=== PATIENT | female | born 1950 | race Caucasian/White ===

== ENCOUNTER → 2022-03-01 | Outpatient (CLI) | payer MEDICARE, BC, SELFPAY ==
[2022-03-01 15:30] LABS: International Normalized Ratio 1.2; Prothrombin Time (Protime)PT. 14.7 SECONDS (11.7-14.9)
[2022-03-01 15:31] LABS: Partial Thromboplast Time 35.6 Seconds (24.1-36.2)
[2022-03-01 16:09] LABS: Ferritin 395 ng/mL (8-252)
[2022-03-02 08:54] LABS: Hepatitis C Antibody Non-Reactive (Nonreactive)
[2022-03-03 14:50] LABS: AFP, Tumor Marker 2.2 ng/mL (0.0-9.2); Anti-Smooth Muscle ABS 8 Units (0-19); Ceruloplasmin 23.8 mg/dL (19.0-39.0)
[2022-03-03 14:51] LABS: ANTINUCLEAR ANTIBODIES DIRECT Positive (Negative); Anti-Mitochondrial AB <20.0 Units (0.0-20.0)
== END | disposition home or self-care (01) ==
PROVIDERS: PCP Nurse Practitioner Primary Care; Referring Provider Internal Medicine Gastroenterology; Visit Provider Internal Medicine Gastroenterology
DX: K75.9 Inflammatory liver disease, unspecified (principal); K74.60 Unspecified cirrhosis of liver
CPT/HCPCS: 36415; 82105; 82390; 82728; 83516; 85610; 85730; 86038; 86803

== ENCOUNTER → 2023-08-21 | Outpatient (CLI) | payer MEDICARE, BC, SELFPAY ==
--- OUTSIDE RECORDS SUMMARY | 2023-08-21 09:50 | XMS RPT_ITS | CCD ---
Author Name Unknown Address [id number] [place] [address] Organization [facility] Care Team Providers Care On Site Services Specialist Name Role Phone MICHEL TENTER-ALIGNER, HASEEB S Primary Care Physicia n Joseluis PT, Jade Unavailable Unavailable CLARKE WYNN Attending Unavailable MICHEL TENTER-ALIGNER, HASEEB S Primary Care Unava ilable TERRY LOPEZ MD Attending Unavailable MICHEL TENTER-ALIGNER, HASEEB S Attending Unava ilable MICHEL TENTER-ALIGNER, HASEEB S Primary Care Unava ilable GARETT NICOLE PA-C Attending Unavailable MICHEL TENTER-ALIGNER, HASEEB S Primary Care Unava ilable MICHEL TENTER-ALIGNER, HASEEB S Primary Care Unava ilable TERRY LOPEZ MD Attending Unavailable MICHEL TENTER-ALIGNER, HASEEB S Primary Care Unava ilable TERRY LOPEZ MD Attending Unavailable MICHEL TENTER-ALIGNER, HASEEB S Primary Care Unava ilable DIANA HAYES, BENY Attending Unavaila ble KAPPER TENTER-ALIGNER, JADE Li Attending Unavaila ble FOITH TENTER-ALIGNER, JORDAN Admitting Unavailab le MICHEL TENTER-ALIGNER, HASEEB S Primary Care Unava ilable FISH TENTER-ALIGNERIFRAH Consulting Unavailab ELIZABETH Portillo MD Referring Unavailable MICHEL TENTER-ALIGNER, HASEEB S Attending Unava ilable MICHEL TENTER-ALIGNER, HASEEB S Primary Care Unava ilable MICHEL TENTER-ALIGNER, HASEEB S Primary Care Unava ilable FISH TENTER-ALIGNER, IFRAH Attending Unavailab le MICHEL TENTER-ALIGNER, HASEEB S Primary Care Unava ilable DIANA HAYES, BENY Attending Unavaila yanique VAZQUEZ MD, DR SETH Attending Unavailable MICHEL TENTER-ALIGNER, HASEEB S Primary Care Unava ilable TAYLOR HAYES, DR SETH Attending Unavailable MICHEL TENTER-ALIGNER, HASEEB S Primary Care Unava ilable MICHEL TENTER-ALIGNER, HASEEB S Primary Care Unava ilable TAYLOR HAYES, DR SETH Attending Unavailable MICHEL TENTER-ALIGNER, HASEEB S Primary Care Unava ilable MICHEL TENTER-ALIGNER, HASEEB S Attending Unava ilable CONCHITA BAHENA Attending Unavailable MICHEL TENTER-ALIGNER, HASEEB S Primary Care Unava ilable MD CORA MÁRQUEZ Attending Unavailable MICHEL TENTER-ALIGNER, HASEEB S Primary Care Unava ilable CRUZ TENTER-ALIGNER, MARGRET Sol Attending Skyla vailable MICHEL TENTER-ALIGNER, HASEEB S Primary Care Unava ilable MICHEL TENTER-ALIGNER, HASEEB S Primary Care Unava ilable JOHN HAYES, TERRY Salgado Attending Unavailable TAYLOR HAYES, DR SETH Attending Unavailable MICHEL TENTER-ALIGNER, HASEEB S Primary Care Unava ilable FOITH TENTER-ALIGNER, JORDAN Consulting Unavailab le MICHEL TENTER-ALIGNER, HASEEB S Primary Care Unava ilable ALBIN BARRETT MD Attending Unavailable MICHEL TENTER-ALIGNER, HASEEB S Primary Care Unava ilable SHAY CALDERON DO Attending UnavailCHARO Kurtz MD Consulting Unavailable MICHEL TENTER-ALIGNER, HASEEB S Primary Care Unava ilable SHAY CALDERON DO Attending Unavailabl e MICHEL TENTER-ALIGNER, HASEEB S Primary Care Unava ilable TERRY LOPEZ MD Attending Unavailable MICHEL TENTER-ALIGNER, HASEEB S Primary Care Unava ilable KASIA BENEDICT DO Attending Unavailable Allergies Allergy Classification Reported Allergen(s) Allergy Type Date of Onset Reaction(s) Facility (5 sources) Captopril; Translations: [captopril] Drug Allergy TACHYCARDIA [facility] Work Phone: (20 sources) Clarithromycin; Translations: [clarithromycin] Drug Allergy Eruption of skin (disorder) [facility] Work Phone: Medications Current Medications Medication Drug Class(es) Dates Sig (Normalized) Sig (Original) acetaminophen 325 mg / HYDROcodone bitartrate 10 mg oral tablet (9 sources) Opioid Agonist Start: 09-28-2021 End: 10-28-2021 acetaminophen-hydr ocodone 325 mg-10 mg oral tablet Dose = 1 tab(s), Oral, q6hr, fill date 09-28-21, # 120 tab(s), 0 Refill(s), Pharmacy: [facility], Lumbar stenosis, 09/28/21, 157.5, cm, 09/06/21 13:58:00 EST, Height, 55.2, kg, 09/06/21 13:58:00 EST, Dosing Weight Start Date: 09/28/21 Stop Date: 10/28/21 Status: Ordered Completed/Discontinued Medications Medication Drug Class(es) Dates Sig (Normalized) Sig (Original) acetaminophen 325 mg / oxyCODONE hydrochloride 7.5 mg oral tablet (10 sources) Opioid Agonist Start: 01-30-2022 End: 03-01-2022 take 1 tablet by mouth every six hours acetaminophen-oxy codone 325 mg-7.5 mg oral tablet Dose = 1 tab(s), Oral, q6hr, fill date 01/30/2022, # 120 tab(s), 0 Refill(s), Pharmacy: [facility], Lumbar post-laminectomy syndrome, 01/30/22, 157.5, cm, 12/28/21 13:21:00 EDT, Height, 54.1 Start Date: 01/30/22 Stop Date: 03/01/22 Status: Ordered Problems Problem Classification Problem Date Documented Date Episodic/Chronic Adjustment disorders (5 sources) Grief finding 11-29-2022 Chronic Administrative/social admission (4 sources) 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 07-18-2023 Episodic Anxiety disorders (18 sources) Anxiety disorder, unspecified; Translations: [Anxiety] Onset: 12-05-2022 Chronic Cardiac dysrhythmias (20 sources) Palpitations 12-11-2019 Episodic Chronic kidney disease (11 sources) Chronic kidney disease stage 3B 12-27-2022 Chronic Deficiency and other anemia (20 sources) Anemia; Translations: [Anemia, unspecified] Onset: 01-18-2023 07-05-2020 Episodic Deficiency and other anemia (16 sources) Iron deficiency anemia 2022 Episodic Disorders of lipid metabolism (15 sources) Hyperlipidemia 08-01-2022 Chronic Essential hypertension (4 sources) Benign essential hypertension 07-18-2023 Chronic Fluid and electrolyte disorders (1 source) Dehydration; Translations: [Dehydration] Onset: 03-19-2022 Episodic Mood disorders (20 sources) Depressive disorder; Translations: [Severe recurrent major depression] 06-12-2019 Chronic Mood disorders (2 sources) Mood disorders; Translations: [Depression, unspecified] Onset: 12-05-2022 Neoplasms of unspecified nature or uncertain behavior (20 sources) Monoclonal gammopathy (clinical); Translations: [Monoclonal gammopathy] Onset: 01-18-2023 07-25-2021 Chronic Nonspecific chest pain (16 sources) Chest pain; Translations: [Chest pain, unspecified] Onset: 03-23-2022 Episodic Osteoporosis (20 sources) Osteoporosis 06-29-2021 Chronic Other connective tissue disease (20 sources) Fibromyalgia 06-12-2019 Episodic Other inflammatory condition of skin (1 source) Subacute cutaneous lupus erythematosus; Translations: [Subacute cutaneous lupus erythematosus] Chronic Other inflammatory condition of skin (8 sources) Erythema multiforme 01-31-2023 Episodic Other liver diseases (7 sources) Cirrhosis of liver 03-07-2022 Chronic Other liver diseases (15 sources) 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 Other lower respiratory disease (6 sources) Multiple nodules of lung 06-05-2023 Episodic Other nervous system disorders (8 sources) Chronic postoperative pain 02-26-2023 Chronic Other non-epithelial cancer of skin (4 sources) Basal cell carcinoma of face 07-18-2023 Episodic Other skin disorders (1 source) Actinic keratosis; Translations: [Actinic keratosis] Episodic Other upper respiratory disease (11 sources) Allergic rhinitis 12-27-2022 Chronic Other upper respiratory disease (4 sources) Seasonal allergy 07-18-2023 Chronic Other upper respiratory disease (4 sources) Nasal congestion 07-18-2023 Episodic Other upper respiratory disease (4 sources) Nasal discharge 07-18-2023 Episodic Poisoning by other medications and drugs (16 sources) Iron adverse reaction 2022 Episodic Residual codes; unclassified (20 sources) Insomnia 06-29-2021 Episodic Skin and subcutaneous tissue infections (20 sources) Cellulitis 06-01-2021 Episodic Spondylosis; intervertebral disc disorders; other back problems (20 sources) Lumbar post-laminectomy syndrome; Translations: [Degeneration of intervertebral disc] Onset: 07-23-2023 03-10-2021 Chronic Spondylosis; intervertebral disc disorders; other back problems (20 sources) Low back pain; Translations: [Spinal stenosis of lumbar region] Onset: 11-25-2015 11-25-2015 Episodic Suicide and intentional self-inflicted injury (2 sources) Suicidal ideations; Translations: [Suicidal ideations] Onset: 12-05-2022 Episodic Systemic lupus erythematosus and connective tissue disorders (7 sources) Systemic lupus erythematosus 03-26-2023 Chronic Thyroid disorders (20 sources) Hypothyroidism 06-12-2019 Chronic Unclassified (20 sources) CLAUSTROPHOBIC - NO MASKS( Confirmed ) Onset: 08-20-1999 06-10-2007 Unclassified (20 sources) l4,l5 discectomy( Confirmed ) Onset: 06-11-2007 06-20-2007 Unclassified (20 sources) lumbar cerebral spinal leak( Confirmed ) Onset: 06-20-2007 06-20-2007 Unclassified (20 sources) Patient encounter status 06-01-2021 Unclassified (13 sources) CLAUSTROPHOBIC - NO MASKS Onset: 08-20-1999 06-10-2007 Unclassified (13 sources) l4,l5 discectomy Onset: 06-11-2007 06-20-2007 Unclassified (13 sources) lumbar cerebral spinal leak Onset: 06-20-2007 06-20-2007 Unclassified (8 sources) Prescribed medication regimen behavior finding 02-26-2023 Viral infection (1 source) Disease caused by 2019-nCoV 06-06-2022 Results Test Name Value Interpretation Reference Range Facil ity Vital Signs Date Time Vital Sign Value Performing Clinician Faci lity 07-23-2023 20:30-0500 Body temperature 97.16 [degF] SHAY CALDERON [employer] [facility] 07-23-2023 20:30-0500 Diastolic Blood Pressure Non-Invasive 82 mm[Hg] SHAY CALDERON [employer] [facility] 07-23-2023 20:30-0500 Heart rate 63 /min SHAY CALDERON DO [facility] 07-23-2023 20:30-0500 Respiratory rate 16 /min SHAY CALDERON DO [facility] 07-23-2023 20:30-0500 Systolic Blood Pressure Non-Invasive 178 mm[Hg] SHAY CALDERON DO [facility] 07-23-2023 19:30-0500 Body temperature 97.7 [degF] SHAY CALDERON DO [facility] 07-23-2023 19:30-0500 Diastolic Blood Pressure Non-Invasive 67 mm[Hg] SHAY CALDERON DO [facility] 07-23-2023 19:30-0500 Heart rate 62 /min SHAY BAUERRAN DO [facility] 07-23-2023 19:30-0500 Respiratory rate 18 /min SHAY BAUERRAN DO [facility] 07-23-2023 19:30-0500 Systolic Blood Pressure Non-Invasive 149 mm[Hg] SHAY BAUERRAN DO [facility] 07-23-2023 19:18-0500 Heart rate 62 /min SHAY BAUERRAN DO [facility] 07-23-2023 19:08-0500 Body temperature 96.8 [degF] SHAY BAUERRAN DO [facility] 07-23-2023 19:08-0500 Diastolic Blood Pressure Non-Invasive 56 mm[Hg] SHAY CALDERON DO [facility] 07-23-2023 19:08-0500 Heart rate 63 /min SHAY CALDERON DO [facility] 07-23-2023 19:08-0500 Mean blood pressure 84 mm[Hg] SHAY CALDERON DO [facility] 07-23-2023 19:08-0500 Systolic Blood Pressure Non-Invasive 156 mm[Hg] SHAY BAUERRAN DO [facility] 07-23-2023 18:35-0500 Respiratory rate 16 /min SHAY CALDERON DO [facility] 07-23-2023 18:30-0500 Mean blood pressure 98 mm[Hg] SHAY BAUERRAN DO [facility] 07-23-2023 18:12-0500 Mean blood pressure 95 mm[Hg] SHAY BAUERRAN DO [facility] 07-23-2023 17:30-0500 Respiratory Rate - Anes 3 br/min SHAY BAUERRAN DO [facility] 07-23-2023 17:25-0500 Body temperature 97.9 [degF] SHAY BAUERRAN DO [facility] 07-23-2023 17:25-0500 Respiratory Rate - Anes 12 br/min SHAY BAUERRAN DO [facility] 07-23-2023 17:20-0500 Body temperature 97.83 [degF] SHAY BAUERRAN DO [facility] 07-23-2023 17:20-0500 Respiratory Rate - Anes 11 br/min SHAY BAUERRAN DO [facility] 07-23-2023 17:15-0500 Body temperature 97.81 [degF] SHAY BAUERRAN DO [facility] 07-23-2023 11:15-0500 Body height 157.5 cm SHAY BAUERRAN DO [facility] 07-23-2023 11:15-0500 Body weight 51.6 kg SHAY BAUERRAN DO [facility] 07-23-2023 11:15-0500 Heart rate 63 /min SHAY CALDERON DO [facility] 07-18-2023 14:45-0500 Diastolic Blood Pressure Non-Invasive 69 mm[Hg] SHAY BAUERRAN DO [facility] 07-18-2023 14:45-0500 Systolic Blood Pressure Non-Invasive 132 mm[Hg] SHAY BAUERRAN DO [facility] 07-18-2023 14:06-0500 Blood Pressure Cuff Size SHAY BAUERRAN DO [facility] 07-18-2023 14:06-0500 Blood Pressure Location SHAY CALDERON DO [facility] 07-18-2023 14:06-0500 Blood Pressure Method SHAY CALDERON DO [facility] 07-18-2023 14:06-0500 Body height 157.5 cm SHAY BAUERRAN DO [facility] 07-18-2023 14:06-0500 Body temperature 98.78 [degF] SHAY BAUERRAN DO [facility] 07-18-2023 14:06-0500 Body weight 21.85 kg/m2 SHAY BAUERRAN DO [facility] 07-18-2023 14:06-0500 Body weight 54.2 kg SHAY BAUERRAN DO [facility] 07-18-2023 14:06-0500 Diastolic Blood Pressure Non-Invasive 72 mm[Hg] SHAY BAUERRAN DO [facility] 07-18-2023 14:06-0500 Heart rate 68 /min SHAY BAUERRAN DO [facility] 07-18-2023 14:06-0500 Systolic Blood Pressure Non-Invasive 177 mm[Hg] SHAY BAUERRAN DO [facility] 08-04-2022 18:44-0400 Diastolic blood pressure 72 mm[Hg] ROSENDO DURESKA DO [facility] 03-23-2022 18:44-0400 Heart rate 69 /min ROSENDO DURESKA DO [facility] 03-23-2022 18:44-0400 Reason For Taking VItal Signs ROSENDO DURESKA DO [facility] 03-23-2022 18:44-0400 Respiratory rate 16 /min ROSENDO DURESKA DO [facility] 03-23-2022 18:44-0400 Systolic blood pressure 174 mm[Hg] ROSENDO DURESKA DO [facility] 03-23-2022 18:26-0400 Diastolic blood pressure 60 mm[Hg] ROSENDO DURESKA DO [facility] 03-23-2022 18:26-0400 Heart rate 66 /min ROSENDO DURESKA DO [facility] 03-23-2022 18:26-0400 Reason For Taking VItal Signs ROSENDO DURESKA DO [facility] 03-23-2022 18:26-0400 Respiratory rate 16 /min ROSENDO DURESKA DO [facility] 03-23-2022 18:26-0400 Systolic blood pressure 180 mm[Hg] ROSENDO DURESKA DO [facility] 03-23-2022 15:29-0400 Body temperature 97.7 [degF] ROSENDO DURESKA DO [facility] 03-23-2022 15:29-0400 Diastolic blood pressure 68 mm[Hg] ROSENDO DURESKA DO [facility] 03-23-2022 15:29-0400 Heart rate 75 /min ROSENDO DURESKA DO [facility] 03-23-2022 15:29-0400 Respiratory rate 20 /min ROSENDO DURESKA DO [facility] 03-23-2022 15:29-0400 Systolic blood pressure 155 mm[Hg] ROSENDO DURESKA DO [facility] 03-19-2022 17:50-0400 Body temperature 98.78 [degF] MINGO MENON MD [facility] 03-19-2022 17:50-0400 Diastolic blood pressure 69 mm[Hg] MINGO MENON MD [facility] 03-19-2022 17:50-0400 Heart rate 74 /min MINGO MENON MD [facility] 03-19-2022 17:50-0400 Respiratory rate 18 /min MINGO MENON MD [facility] 03-19-2022 17:50-0400 Systolic blood pressure 153 mm[Hg] MINGO MENON MD [facility] 03-19-2022 16:39-0400 Body height 157.5 cm MINGO MENON MD [facility] 03-19-2022 16:39-0400 Body temperature 101.3 [degF] MINGO MENON MD [facility] 03-19-2022 16:39-0400 Body weight 54.5 kg MINGO MENON MD [facility] 03-19-2022 16:39-0400 Diastolic blood pressure 84 mm[Hg] MINGO MENON MD [facility] 03-19-2022 16:39-0400 Heart rate 88 /min MINGO MENON MD [facility] 03-19-2022 16:39-0400 Respiratory rate 20 /min MINGO MENON MD [facility] 03-19-2022 16:39-0400 Systolic blood pressure 166 mm[Hg] MINGO MENON MD [facility] 10-26-2021 14:08-0500 Body height 157.[address] ROLO VAZQUEZ MD [facility] 10-26-2021 14:08-0500 Body weight 54.[address] ROLO VAZQUEZ MD [facility] 10-26-2021 14:08-0500 Body weight 21.97 kg/m2 DR ROLO VAZQUEZ MD [facility] 10-26-2021 14:08-0500 diastolic 63 mm[Hg] DR ROLO VAZQUEZ MD [facility] 10-26-2021 14:08-0500 Heart rate 69 /min DR ROLO VAZQUEZ MD [facility] 10-26-2021 14:08-0500 Reason For Taking VItal Signs DR ROLO VAZQUEZ MD [facility] 10-26-2021 14:08-0500 Respiratory rate 14 /min DR ROLO VAZQUEZ MD [facility] 10-26-2021 14:08-0500 systolic 160 mm[Hg] DR ROLO VAZQUEZ MD [facility] 10-26-2021 13:36-0500 Diastolic blood pressure 100 mm[Hg] DR ROLO VAZQUEZ MD [facility] 10-26-2021 13:36-0500 Heart rate 77 /min DR ROLO VAZQUEZ MD [facility] 10-26-2021 13:36-0500 Mean blood pressure 122 mm[Hg] DR ROLO VAZQUEZ MD [facility] 10-26-2021 13:36-0500 Reason For Taking VItal Signs DR ROLO VAZQUEZ MD [facility] 10-26-2021 13:36-0500 Respiratory rate 17 /min DR ROLO VAZQUEZ MD [facility] 10-26-2021 13:36-0500 Systolic blood pressure 166 mm[Hg] DR ROLO VAZQUEZ MD [facility] 10-26-2021 13:31-0500 Diastolic blood pressure 71 mm[Hg] DR ROLO VAZQUEZ MD [facility] 10-26-2021 13:31-0500 Heart rate 69 /min DR ROLO VAZQUEZ MD [facility] 10-26-2021 13:31-0500 Mean blood pressure 104 mm[Hg] DR ROLO VAZQUEZ MD [facility] 10-26-2021 13:31-0500 Respiratory rate 19 /min DR ROLO VAZQUEZ MD [facility] 10-26-2021 13:31-0500 Systolic blood pressure 169 mm[Hg] DR ROLO VAZQUEZ MD [facility] 10-26-2021 13:26-0500 Diastolic blood pressure 87 mm[Hg] DR ROLO VAZQUEZ MD [facility] 10-26-2021 13:26-0500 Heart rate 66 /min DR ROLO VAZQUEZ MD [facility] 10-26-2021 13:26-0500 Mean blood pressure 118 mm[Hg] DR ROLO VAZQUEZ MD [facility] 10-26-2021 13:26-0500 Systolic blood pressure 180 mm[Hg] DR ROLO VAZQUEZ MD [facility] 09-15-2021 12:32-0500 Diastolic blood pressure 60 mm[Hg] BENY ORTIZ MD [facility] 09-15-2021 12:32-0500 Heart rate 60 /min BENY ORTIZ MD [facility] 09-15-2021 12:32-0500 Mean blood pressure 87 mm[Hg] BENY ORTIZ MD [facility] 09-15-2021 12:32-0500 Respiratory rate 18 /min BENY ORTIZ MD [facility] 09-15-2021 12:32-0500 Systolic blood pressure 142 mm[Hg] BENY ORTIZ MD [facility] 09-15-2021 11:25-0500 Body temperature 98.24 [degF] BENY ORTIZ MD [facility] 09-15-2021 11:25-0500 Diastolic blood pressure 57 mm[Hg] BENY ORTIZ MD [facility] 09-15-2021 11:25-0500 Heart rate 65 /min BENY ORTIZ MD [facility] 09-15-2021 11:25-0500 Mean blood pressure 82 mm[Hg] BENY ORTIZ MD [facility] 09-15-2021 11:25-0500 Respiratory rate 18 /min BENY ORTIZ MD [facility] 09-15-2021 11:25-0500 Systolic blood pressure 133 mm[Hg] BENY ORTIZ MD [facility] 06-23-2021 09:35-0400 Diastolic Blood Pressure NBP [address] ROLO VAZQUEZ MD [facility] 06-23-2021 09:35-0400 Heart rate 81 /min DR ROLO VAZQUEZ MD [facility] 06-23-2021 09:35-0400 Respiratory rate 16 /min DR ROLO VAZQUEZ MD [facility] 06-23-2021 09:35-0400 Systolic Blood Pressure NBP [address] ROLO VAZQUEZ MD [facility] 06-23-2021 09:26-0400 Diastolic blood pressure 74 mm[Hg] DR ROLO VAZQUEZ MD [facility] 06-23-2021 09:26-0400 Heart rate 71 /min DR ROLO VAZQUEZ MD [facility] 06-23-2021 09:26-0400 Respiratory rate 15 /min DR ROLO VAZQUEZ MD [facility] 06-23-2021 09:26-0400 Systolic blood pressure 177 mm[Hg] DR ROLO VAZQUEZ MD [facility] 06-23-2021 09:18-0400 Diastolic Blood Pressure NBP [address] ROLO VAZQUEZ MD [facility] 06-23-2021 09:18-0400 Heart rate 80 /min DR ROLO VAZQUEZ MD [facility] 06-23-2021 09:18-0400 Respiratory rate 18 /min DR ROLO VAZQUEZ MD [facility] 06-23-2021 09:18-0400 Systolic Blood Pressure NBP [address] ROLO VAZQUEZ [address] [facility] 06-23-2021 09:12-0400 Diastolic Blood Pressure NBP [address]O VAZQUEZ [address] [facility] 06-23-2021 09:12-0400 Heart rate 88 /min DR ROLO VAZQUEZ MD [facility] 06-23-2021 09:12-0400 Systolic Blood Pressure NBP [address]OLO VAZQUEZ MD [facility] 06-23-2021 08:22-0400 Body height 157.[address] ROLO VAZQUEZ MD [facility] 06-23-2021 08:22-0400 Body weight 54.[address] ROLO VAZQUEZ MD [facility] 06-23-2021 08:22-0400 Body weight 22.09 kg/m2 DR ROLO VAZQUEZ MD [facility] 06-23-2021 08:22-0400 Heart rate 84 /min DR ROLO VAZQUEZ MD [facility] Encounters Encounter Date Encounter Type Care Provider Facility Start: 07-30-2023 End: 07-31-2023 ambulatory GARETT NICOLE PA-C Facility:B Start: 07-30-2023 End: 07-30-2023 Patient encounter procedure GARETT NICOLE PA-C [facility] Start: 07-30-2023 End: 07-30-2023 Patient encounter procedure TERRY LOPEZ MD [facility] Start: 07-23-2023 End: 07-23-2023 ambulatory CHARO FERNÁNDEZ MD Facility:A Start: 07-23-2023 End: 07-23-2023 SAME DAY STAY SHAY CALDERON DO [facility] Start: 07-18-2023 End: 07-19-2023 ambulatory HASEEB S MICHEL TENTER-ALIGNER Facility:A Start: 07-18-2023 End: 07-18-2023 Admission to establishment SHAY CALDERON DO [facility] Start: 06-21-2023 End: 06-22-2023 ambulatory HASEEB S MICHEL TENTER-ALIGNER Facility:B Start: 06-21-2023 End: 06-21-2023 Patient encounter procedure HASEEB Gracy MICHEL TENTER-ALIGNER [facility] Start: 06-18-2023 End: 06-19-2023 ambulatory HASEEB S MICHEL TENTER-ALIGNER Facility:B Start: 06-18-2023 End: 06-18-2023 Patient encounter procedure TERRY LOPEZ MD [facility] Start: 06-11-2023 End: 06-11-2023 ambulatory HASEEB S MICHEL TENTER-ALIGNER Facility:B Start: 05-28-2023 End: 05-29-2023 Emergency department patient visit HASEEB S MICHEL TENTER-ALIGNER Facility:B Start: 05-23-2023 End: 05-24-2023 ambulatory MARGRET Sol CRUZ TENTER-ALIGNER Facility:B Start: 05-23-2023 End: 05-23-2023 Patient encounter procedure MARGRET CRUZ TENTER-ALIGNER [facility] Start: 03-26-2023 End: 03-27-2023 ambulatory HASEEB S MICHEL TENTER-ALIGNER Facility:B Start: 02-26-2023 End: 02-27-2023 ambulatory HASEEB S MICHEL TENTER-ALIGNER Facility:B Start: 02-26-2023 End: 02-26-2023 Patient encounter procedure TERRY LOPEZ MD [facility] Start: 01-18-2023 End: 01-19-2023 ambulatory HASEEB S MICHEL TENTER-ALIGNER Facility:A Start: 01-18-2023 End: 01-18-2023 Patient encounter procedure BENY ORTIZ MD [facility] Start: 01-16-2023 End: 01-17-2023 ambulatory HASEEB S MICHEL TENTER-ALIGNER Facility:A Start: 01-16-2023 End: 01-16-[address] ROLO VAZQUEZ MD [facility] Start: 01-12-2023 End: 01-13-2023 ambulatory HASEEB S MICHEL TENTER-ALIGNER Facility:B Start: 01-09-2023 End: 01-10-2023 ambulatory HASEEB S MICHEL TENTER-ALIGNER Facility:B Start: 01-08-2023 End: 01-08-2023 ambulatory JADE LORENZO TENTER-ALIGNER Facility:B Start: 01-07-2023 End: 01-08-2023 Emergency department patient visit JORDAN NAPIER TENTER-ALIGNER Facility:A Start: 12-28-2022 End: 12-29-2022 ambulatory HASEEB S MICHEL TENTER-ALIGNER Facility:B Start: 12-28-2022 End: 12-28-2022 Patient encounter procedure HASEEB Dubose MICHEL TENTER-ALIGNER [facility] Start: 12-14-2022 End: 12-15-2022 ambulatory CONCHITA JETT ID REFERRING Facility:B Start: 12-11-2022 End: 12-12-[address] ROLO VAZQUEZ MD Facility:A Start: 12-11-2022 End: 12-11-[address] ROLO VAZQUEZ MD [facility] Start: 12-05-2022 End: 12-05-2022 ambulatory [facility] Start: 11-24-2022 End: 11-25-[address] ROLO VAZQUEZ MD Facility:A Start: 11-24-2022 End: 11-24-[address] ROLO VAZQUEZ MD [facility] Start: 08-21-2022 End: 08-22-2022 ambulatory HASEEB PEARSON TENTER-ALIGNER Facility:B Start: 08-18-2022 End: 08-19-2022 ambulatory MD CORA MÁRQUEZ Facility:B Start: 08-18-2022 End: 08-18-2022 Patient encounter procedure CORA MÁRQUEZ [facility] Start: 08-15-2022 End: 08-16-[address] ROLO VAZQUEZ MD Facility:A Start: 08-15-2022 End: 08-15-[address] ROLO VAZQUEZ MD [facility] Start: 07-27-2022 End: 07-27-2022 Patient encounter procedure BENY ORTIZ MD [facility] Start: 05-10-2022 End: 05-10-[address] ROLO VAZQUEZ MD [facility] Start: 04-19-2022 End: 04-19-[address] KELSIE PEARSON MD [facility] Start: 03-23-2022 End: 03-23-2022 Emergency department patient visit ROSENDO LATIA ELLISON [facility] Start: 03-19-2022 End: 03-19-2022 Emergency department patient visit MINGO MENON MD [facility] Start: 03-07-2022 End: 03-07-[address] KELSIE PEARSON MD [facility] Start: 03-06-2022 End: 03-06-2022 Patient encounter procedure BENY ORTIZ MD [facility] Start: 03-06-2022 End: 03-07-[address] KELSIE PEARSON MD [facility] Start: 02-02-2022 End: 02-02-2022 Patient encounter procedure HASEEB PEARSON TENTER-ALIGNER [facility] Start: 12-28-2021 End: 12-28-[address] ROLO VAZQUEZ MD [facility] Start: 10-26-2021 End: 03-09-[address] ROLO VAZQUEZ MD [facility] Start: 10-26-2021 End: 10-26-[address] ROLO VAZQUEZ MD [facility] Start: 10-12-2021 End: 10-16-2021 Outreach Lab HARLEY DELAROSA TENTER-ALIGNER [facility] Start: 09-15-2021 End: 09-15-2021 Patient encounter procedure BENY ORTIZ MD [facility] Start: 09-07-2021 End: 09-07-2021 Patient encounter procedure PHY WO ID REFERRING [facility] Start: 09-06-2021 End: 09-06-2021 Patient encounter procedure BENY ORTIZ MD [facility] Start: 08-24-2021 End: 08-28-2021 Outreach Lab HARLEY DELAROSA TENTER-ALIGNER [facility] Start: 08-23-2021 End: 08-23-[address] ROLO VAZQUEZ MD [facility] Start: 06-23-2021 End: 06-23-[address] ROLO VAZQUEZ MD [facility] Start: 06-22-2021 End: 06-22-2021 Patient encounter procedure HASEEB PEARSON TENTER-ALIGNER [facility] Start: 06-13-2021 End: 06-13-2021 Patient encounter procedure HASEEB Dubose MICHEL TENTER-ALIGNER [facility] Start: 06-07-2021 End: 06-07-2021 Patient encounter procedure HASEEB uDbose MICHEL TENTER-ALIGNER [facility] Procedures Date Procedure Procedure Detail Performing Clinician Start: 07-23-2023 Implantation of permanent spinal cord stimulator TERRY LOPEZ MD Start: 03-27-2022 Esophagogastroduodenoscopy gastric outlet reduction DR KELSIE PEARSON MD Start: 10-26-2021 Injection of hip joint DR ROLO VAZQUEZ MD Immunizations Immunization Date Immunization Notes Care Provider Fa [facility] 02-07-2022 pneumococcal polysaccharide vaccine, 23 valent; Translations: [Pneumovax 23] DR KELSIE PEARSON MD [facility] 07-21-2021 zoster vaccine recombinant HASEEB PEARSON TENTER-ALIGNER [facility] 04-21-2021 zoster vaccine recombinant HASEEB PEARSON TENTER-ALIGNER [facility] 06-15-2017 influenza virus vacc ine, unspecified formulation HASEEB PEARSON TENTER-ALIGNER [facility] 05-19-2016 influenza virus vacc ine, unspecified formulation HASEEB PEARSON TENTER-ALIGNER [facility] 06-15-2015 pneumococcal conjuga te vaccine, 13 valent HASEEB PEARSON TENTER-ALIGNER [facility] 05-20-2015 influenza virus vacc ine, unspecified formulation HASEEB PEARSON TENTER-ALIGNER [facility] 12-05-2013 tetanus toxoid, redu jenn diphtheria toxoid, and acellular pertussis vaccine, adsorbed HASEEB PEARSON TENTER-ALIGNER [facility] 2013 zoster vaccine, live HASEEB PEARSON TENTER-ALIGNER [facility] Payers Date Payer Category Payer Unknown [id number] 2014 Medicare [id number] 1950 Unknown [id number] 2.16.8 40.1.181494.3.579.2. 1949 Unknown [id number] 2.16.8 40.1.342041.3.579.2 1949 Unknown [id number] 2.16.8 40.1.250519.3.579.2 1949 Unknown [id number] 2.16.8 40.1.904271.3.579.2 1949 Unknown [id number] 2.16.8 40.1.635451.3.579.2 1949 Unknown [id number] 2.16.8 40.1.821539.3.579.2 1949 Unknown [id number] 2.16.8 40.1.581415.3.579.2 1949 Unknown [id number] 2.16.8 40.1.649377.3.579.2.627 1949 Unknown [id number] 2.16.8 40.1.070500.3.579.2. 1949 Unknown [id number] 2.16.8 40.1.959650.3.579.2. 1949 Unknown [id number] 2.16.8 40.1.431492.3.579.2. 1949 Unknown [id number] 2.16.8 40.1.256476.3.579.2. 1949 Unknown [id number] 2.16.8 40.1.713284.3.579.2. 1949 Unknown [id number] 2.16.8 40.1.509416.3.579.2. 1949 Unknown [id number] 2.16.8 40.1.483888.3.579.2. 1949 Unknown [id number] 2.16.8 40.1.616658.3.579.2. 1949 Unknown [id number] 2.16.8 40.1.834078.3.579.2. 1949 Unknown [id number] 2.16.8 40.1.519296.3.579.2. 1949 Unknown [id number] 2.16.8 40.1.810472.3.579.2. 1949 Unknown [id number] 2.16.8 40.1.597743.3.579.2. 1949 Unknown [id number] 2.16.8 40.1.250835.3.579.2. 1949 Unknown [id number] 2.16.8 40.1.153332.3.579.2. 1949 Unknown [id number] 2.16.8 40.1.916559.3.579.2. 1949 Unknown [id number] 2.16.8 40.1.126744.3.579.2.627 Social History Date Type Detail Facility Start: 06-11-2019 Never smoked tobacco (f inding) [facility] Medical Equipment Procedure Code Equipment Code Equipment Origin al Text Equipment Identifier Dates Spinal Cord Stimulator Insertion Unknown 07/23/23 Unknown Unknown FDA Start: 07-23-2023 Spinal Cord Stimulator Insertion Unknown 07/23/23 Unknown Unknown FDA Start: 07-23-2023 Spinal Cord Stimulator Insertion Unknown 07/23/23 Unknown Unknown FDA Start: 07-23-2023 Spinal Cord Stimulator Insertion Unknown 07/23/23 Unknown Unknown FDA Start: 07-23-2023 Spinal Cord Stimulator Insertion Unknown 07/23/23 Unknown Unknown FDA Start: 07-23-2023 Spinal Cord Stimulator Insertion Unknown 07/23/23 Unknown Unknown FDA Start: 07-23-2023 Functional Status Date Assessment Result Facility 07-23-[address] [facility] 07-23-[address] [facility] 07-23-[address] [facility] 07-23-[address] [facility] 07-23-[address] [facility] 07-18-2023 Functional Status Sensory Deficits None A [facility] 03-23-2022 Functional Status Standard Safet y ID band on, Call device within reach, Bed in low position, Wheels locked, Upper/Half-Length side-rails up, Bedside Cart Locked, Security notified, Safety level maintained [facility] 03-23-2022 Functional Status [facility] 03-19-2022 Functional Status Independent [facility] 03-19-2022 Functional Status Resting [facility] Mental Status Date Assessment Result Facility 07-23-2023 Mental Status Oriented x 4 [facility] 07-23-2023 Mental Status [facility] 07-23-2023 Mental Status Orientation Asse ssment Oriented x 4 [facility] 03-23-2022 Mental Status Oriented x 4 [facility] 03-23-2022 Mental Status [facility] 03-19-2022 Mental Status Orientation Oriented x 4 [facility] 03-19-2022 Mental Status [facility] Clinical Notes 06-18-2020 to 07-23-2023 Note Date & Type Note Facility 07-23-2023 Hospital Discharg e instructions Patient Education 07/23/2023 19:57:44 Spinal Cord Stimulator Implantation, Care After Spinal Cord Stimulator Implant, Care After This sheet gives you information about how to care for yourself after your procedure. Your health care provider may also give you more specific instructions. If you have problems or questions, contact your health care provider. What can I expect after the procedure? After the procedure, it is common to have: Mild pain, bruising, and swelling. Headaches. Soreness in the back. Follow these instructions at home: Incision care Follow instructions from your health care provider about how to take care of your incisions. Make sure you: ?Wash your hands with soap and water before you change your bandages (dressings). If soap and water are not available, use hand wide piece goods inspector. ?Change your dressings as told by your health care provider. ?Leave stitches (sutures), skin glue, or adhesive strips in place. These skin closures may need to stay in place for 2 weeks or longer. If adhesive strip edges start to loosen and curl up, you may trim the loose edges. Do not remove adhesive strips completely unless your health care provider tells you to do that. Check your incision areas every day for signs of infection. Check for: ?Redness, more swelling, or more pain. ?More fluid or blood. ?Warmth. ?Pus or a bad smell. Activity Ask your health care provider what activities are safe for you during recovery. Do not do any of the following until your health care provider approves: ?Drive. ?Activity that requires a lot of energy, including exercise and sports. ?Lift anything that is heavier than 5 lb (2.3 kg), or the limit that you are told. ?Engage in sexual activity. ?Lift your arms above your head. ?Sleep on your stomach, if your device was placed in your abdomen. ?Bend, twist, stretch, or reach for things. Bathing Do not take baths, swim, or use a hot tub until your health care provider approves. Ask your health care provider if you may take showers. You may only be allowed to take sponge baths. Safety Devices that sends out wireless signals may affect your stimulator. If directed by your health care provider, avoid the following: ?MRI and ultrasound tests. ?Metal detectors. ?Anti-theft devices. ?Generators or power lines. Always carry your device ID card with you. Tell all health care providers who care for you that you have a spinal cord stimulator. This is important information that could affect the medical treatment that you receive. General instructions Work with your health care provider to adjust your settings as needed for pain control. Adjusting settings may take some time. Most stimulators can be controlled with a remote. Take jwcs-udv-nbrptvt and prescription medicines only as told by your health care provider. Do not use any products that contain nicotine or tobacco, such as cigarettes and e-cigarettes. If you need help quitting, ask your health care provider. Drink enough fluid to keep your urine pale yellow. Keep all follow-up visits as told by your health care provider. This is important. Contact a health care provider if you have: A fever. Severe pain, and medicines do not help. More fluid or blood coming from your incisions. Headaches that do not go away. Get help right away if: You have redness, more swelling, or more pain around your incisions. Your incision area feels warm to the touch. You have pus or a bad smell coming from your incision area. You have chest pain or problems breathing. You have sudden and severe back pain. You have weakness or sudden muscle tightening (spasms) in your legs. You are not able to control when you urinate or have a bowel movement (incontinence). Summary After implantation of a spinal cord stimulator, mild pain, muscle soreness, headaches, and bruising are common. Follow instructions from your health care provider about incision care, bathing, medicines, and activity. Work with your health care provider to adjust your settings as needed for pain control. Adjusting settings may take some time. Most stimulators can be controlled with a remote. This information is not intended to replace advice given to you by your health care provider. Make sure you discuss any questions you have with your health care provider. Document Released: 09/19/2018 Document Revised: 11/27/2019 Document Reviewed: 09/19/2018 [employer] Patient Education 2020 [employer]. 07/23/2023 19:57:44 Laminectomy, Care After Laminectomy, Care After This sheet gives you information about how to care for yourself after your procedure. Your health care provider may also give you more specific instructions. If you have problems or questions, contact your health care provider. What can I expect after the procedure? After the procedure, it is common to have: Some pain around your incision area. Muscle tightening (spasms) across the back. Follow these instructions at home: Incision care Follow instructions from your health care provider about how to take care of your incision area. Make sure you: ?Wash your hands with soap and water before and after you apply medicine to the area or change your bandage (dressing). If soap and water are not available, use hand wide piece goods inspector. ?Change your dressing as told by your health care provider. ?Leave stitches (sutures), skin glue, or adhesive strips in place. These skin closures may need to stay in place for 2 weeks or longer. If adhesive strip edges start to loosen and curl up, you may trim the loose edges. Do not remove adhesive strips completely unless your health care provider tells you to do that. Check your incision area every day for signs of infection. Check for: ?More redness, swelling, or pain. ?More fluid or blood. ?Warmth. ?Pus or a bad smell. Medicines Take imor-yyi-dpthmtw and prescription medicines only as told by your health care provider. If you were prescribed an antibiotic medicine, use it as told by your health care provider. Do not stop using the antibiotic even if you start to feel better. Bathing Do not take baths, swim, or use a hot tub for 2 weeks, or until your incision has healed completely. If your health care provider approves, you may take showers after your dressing has been removed. Activity Return to your normal activities as told by your health care provider. Ask your health care provider what activities are safe for you. Avoid bending or twisting at your waist. Always bend at your knees. Do not sit for more than 20 30 minutes at a time. Lie down or walk between periods of sitting. Do not lift anything that is heavier than 10 lb (4.5 kg) or the limit that your health care provider tells you, until he or she says that it is safe. Do not drive for 2 weeks after your procedure or for as long as your health care provider tells you. Do not drive or use heavy machinery while taking prescription pain medicine. General instructions To prevent or treat constipation while you are taking prescription pain medicine, your health care provider may recommend that you: ?Drink enough fluid to keep your urine clear or pale yellow. ?Take orbq-fmv-idhdzdj or prescription medicines. ?Eat foods that are high in fiber, such as fresh fruits and vegetables, whole grains, and beans. ?Limit foods that are high in fat and processed sugars, such as fried and sweet foods. Do breathing exercises as told. Keep all follow-up visits as told by your health care provider. This is important. Contact a health care provider if: You have more redness, swelling, or pain around your incision area. Your incision feels warm to the touch. You are not able to return to activities or do exercises as told by your health care provider. Get help right away if: You have: ?More fluid or blood coming from your incision area. ?Pus or a bad smell coming from your incision area. ?Chills or a fever. ?Episodes of dizziness or fainting while standing. You develop a rash. You develop shortness of breath or you have difficulty breathing. You cannot control when you urinate or have a bowel movement. You become weak. You are not able to use your legs. Summary After the procedure, it is common to have some pain around your incision area. You may also have muscle tightening (spasms) across the back. Follow instructions from your health care provider about how to care for your incision. Do not lift anything that is heavier than 10 lb (4.5 kg) or the limit that your health care provider tells you, until he or she says that it is safe. Contact your health care provider if you have more redness, swelling, or pain around your incision area or if your incision feels warm to the touch. These can be signs of infection. This information is not intended to replace advice given to you by your health care provider. Make sure you discuss any questions you have with your health care provider. Document Released: 02/23/2006 Document Revised: 07/19/2018 Document Reviewed: 01/21/2017 [employer] Patient Education 2020 [employer] 07/23/2023 19:57:44 1-SDS Discharge Instructions Template (05/2018) (CUSTOM) [facility] SAME DAY SURGERY DISCHARGE INSTRUCTIONS PLEASE FOLLOW THE INSTRUCTIONS BELOW MARKED WITH AN X: _x__ Regular Diet: Start with clear liquids, then soup and crackers and gradually add other foods. _x__ Drink extra fluids. ___ Special Diet Instructions: ___ ACTIVITY: _x__ Avoid stress to suture line. Since you have had an anesthetic, it would be advisable not to drive, drink alcohol, or make major decisions over the next 24 hours. You may require more rest tonight and tomorrow. ___ May resume regular activity as tolerated. ___ Restrict activity as follows: ___ ___ Walk Only ___ ___ Do not go up and down stairs. ___ Do not ride in car until ___ ___ Do not drive car. ___ Do not have sexual intercourse. _x__ No heavy lifting, pushing or straining. _x__ Other: _Follow all verbal and written orders given by Dr. Calderon.__ BATHING/SHOWERING: ___ Sponge bathe until office visit. ___ Sitting in tub of warm water may relieve discomfort. ___ May tub bathe _x__ May shower ___ On day after surgery sit in tub of warm water to soak off dressing. DRESSING: _x__ Keep operative area dry and clean for _can shower with dressing on._ _x__ Check the operative area for signs of bleeding. Apply pressure to the bleeding site if necessary and call your physician. ___ Change dressing as necessary using sterile dressing material or bandaid. ___ Reinforce dressing as necessary. ___ Change and care for wound as follows: ___ ___ Wear bra for ___ days following breast surgery for comfort. ___ Change drip pad as needed. ___ Wear scrotal support for comfort. WATCH FOR SIGNS OF INFECTION: (Usually appears 36-48 hours after surgery) Increased temperature (101 degrees Fahrenheit or higher) Redness or swelling Increased pain Foul odor or drainage. If you have any questions, please call your doctor at the number listed on your follow up instructions. Follow all instructions given to you by your physician. Please complete and return the survey you will be receiving in the mail to help us better serve our patients. Form: [id number] ([id number]) R: 11/26 Follow Up Care 2023 14:10:07 With:SHAY CALDERON DO, [facility] Address: [address] [facility] [place], [place] [id number]- [phone] Business (1) When:3-7 days [facility] 07-23-2023 Summary of episod e note Discharge Instructions Thank you for allowing [facility] to assist you with your healthcare needs. The following is important discharge information regarding your hospital visit. Your Care Team HASEEB PEARSON Your Diagnosis Degenerative disc disease Chronic lumbar radiculopathy What to do next Scheduled Follow-Up Appointments Appointment Type When With Where Contact InformationPM OV 07/30/2023 09:00 AM TERRY GORDILLO MD [facility] OV Post Op 08/07/2023 11:00 [facility] Follow Up 11/26/2023 01:15 PM EDT BENY ORTIZ MD [facility] OV 12/05/2023 10:00 AM EDT HASEEB PEARSON [address] [id number] Follow Up Appointments Follow Up with SHAY CALDERON DO, [facility] When Within 3-7 days Where: [address] [facility] [place], [place] [address]- [phone] Business (1) The Following Activity and Diet Have Been Ordered for You Discharge Activity - Ordered -- Other, Follow the post-operative/post-procedure activity instructions provided by your physician's office., 07/23/23 19:46:00 EST Discharge Diet - Ordered -- Type of Diet: Regular, 07/23/23 19:46:00 EST The Following Equipment Has Been Ordered for You Discharge Home Equipment Discharge Wound Care - Ordered -- Dressing Type: *Other (specify in special instructions), Change Dressing: qDay, maintain aquacell; may shower, do not soak inciscion, 07/23/23 19:46:00 EST Someone Will Contact You Regarding These Home Health Referrals No home referrals have been ordered for you. No one will call you. Allergies Cymbalta (serotonin sydnrome) sulfa drug (Hives, Rash) Biaxin (Rash) Lyrica (Double vision) NSAIDS (Hives, Rash) vancomycin (Ringing in ears, Rash) Medications Please ask your primary doctor or pharmacist before taking any other medication not listed, including over the counter drugs, herbal medications, vitamins and or supplements as they may interact with your home medications. What How Much When Why Instructions Last Dose New tiZANidine (tiZANidine 4 mg oral tablet) 4 Milligram by mouth Every 8 hours as needed for Muscle spasm Degenerative disc disease Chronic lumbar radiculopathy Pickup at [facility] Unchanged alendronate (alendronate 35 mg oral tablet) 1 tab(s) by mouth Every Sunday Unchanged cholecalciferol (Vitamin D3 50,000 intl units (1250 mcg) oral capsule) 1 cap by mouth Every Sunday Unchanged cloNIDine (cloNIDine 0.1 mg oral tablet) 1 tab(s) by mouth Two (2) times a day Duration: 30 Days Unchanged FLUoxetine (FLUoxetine 40 mg oral capsule) 1 cap by mouth Once a day Duration: 90 Days Unchanged hydroxychloroquine (hydroxychloroquine 200 mg oral tablet) 1 tab(s) by mouth Once a day (in the morning) Unchanged levothyroxine (Synthroid 100 mcg (0.1 mg) oral tablet) 1 tab(s) by mouth Daily at bedtime Duration: 90 Days Unchanged losartan (losartan 100 mg oral tablet) 1 tab(s) by mouth Once a day Unchanged oxyCODONE (oxyCODONE 10 mg oral tablet ( IMMEDIATE release )) 1 tab(s) by mouth Every 6 hours Lumbar canal stenosis Duration: 30 Days Unchanged traZODone (traZODone 100 mg oral tablet) 1 tab(s) by mouth Daily at bedtime Duration: 90 Days Pharmacy Information [facility]: [address] [place], [place] [id number] [phone] Please take this list to your next doctor s visit. Bring all medications you take, including over the counter medications, herbals and other supplements with you to your doctor s visit. Patients and families are reminded to discard old lists and to update any records with all medication providers or retail pharmacies. Education Materials Spinal Cord Stimulator Implant, Care After This sheet gives you information about how to care for yourself after your procedure. Your health care provider may also give you more specific instructions. If you have problems or questions, contact your health care provider. What can I expect after the procedure? After the procedure, it is common to have: Mild pain, bruising, and swelling. Headaches. Soreness in the back. Follow these instructions at home: Incision care Follow instructions from your health care provider about how to take care of your incisions. Make sure you: ? Wash your hands with soap and water before you change your bandages (dressings). If soap and water are not available, use hand wide piece goods inspector. ? Change your dressings as told by your health care provider. ? Leave stitches (sutures), skin glue, or adhesive strips in place. These skin closures may need to stay in place for 2 weeks or longer. If adhesive strip edges start to loosen and curl up, you may trim the loose edges. Do not remove adhesive strips completely unless your health care provider tells you to do that. Check your incision areas every day for signs of infection. Check for: ? Redness, more swelling, or more pain. ? More fluid or blood. ? Warmth. ? Pus or a bad smell. Activity Ask your health care provider what activities are safe for you during recovery. Do not do any of the following until your health care provider approves: ? Drive. ? Activity that requires a lot of energy, including exercise and sports. ? Lift anything that is heavier than 5 lb (2.3 kg), or the limit that you are told. ? Engage in sexual activity. ? Lift your arms above your head. ? Sleep on your stomach, if your device was placed in your abdomen. ? Bend, twist, stretch, or reach for things. Bathing Do not take baths, swim, or use a hot tub until your health care provider approves. Ask your health care provider if you may take showers. You may only be allowed to take sponge baths. Safety Devices that sends out wireless signals may affect your stimulator. If directed by your health care provider, avoid the following: ? MRI and ultrasound tests. ? Metal detectors. ? Anti-theft devices. ? Generators or power lines. Always carry your device ID card with you. Tell all health care providers who care for you that you have a spinal cord stimulator. This is important information that could affect the medical treatment that you receive. General instructions Work with your health care provider to adjust your settings as needed for pain control. Adjusting settings may take some time. Most stimulators can be controlled with a remote. Take iywa-yye-wuzcqvi and prescription medicines only as told by your health care provider. Do not use any products that contain nicotine or tobacco, such as cigarettes and e-cigarettes. If you need help quitting, ask your health care provider. Drink enough fluid to keep your urine pale yellow. Keep all follow-up visits as told by your health care provider. This is important. Contact a health care provider if you have: A fever. Severe pain, and medicines do not help. More fluid or blood coming from your incisions. Headaches that do not go away. Get help right away if: You have redness, more swelling, or more pain around your incisions. Your incision area feels warm to the touch. You have pus or a bad smell coming from your incision area. You have chest pain or problems breathing. You have sudden and severe back pain. You have weakness or sudden muscle tightening (spasms) in your legs. You are not able to control when you urinate or have a bowel movement (incontinence). Summary After implantation of a spinal cord stimulator, mild pain, muscle soreness, headaches, and bruising are common. Follow instructions from your health care provider about incision care, bathing, medicines, and activity. Work with your health care provider to adjust your settings as needed for pain control. Adjusting settings may take some time. Most stimulators can be controlled with a remote. This information is not intended to replace advice given to you by your health care provider. Make sure you discuss any questions you have with your health care provider. Document Released: 09/19/2018 Document Revised: 11/27/2019 Document Reviewed: 09/19/2018 [employer] Patient Education 2020 [employer] Laminectomy, Care After This sheet gives you information about how to care for yourself after your procedure. Your health care provider may also give you more specific instructions. If you have problems or questions, contact your health care provider. What can I expect after the procedure? After the procedure, it is common to have: Some pain around your incision area. Muscle tightening (spasms) across the back. Follow these instructions at home: Incision care Follow instructions from your health care provider about how to take care of your incision area. Make sure you: ? Wash your hands with soap and water before and after you apply medicine to the area or change your bandage (dressing). If soap and water are not available, use hand wide piece goods inspector. ? Change your dressing as told by your health care provider. ? Leave stitches (sutures), skin glue, or adhesive strips in place. These skin closures may need to stay in place for 2 weeks or longer. If adhesive strip edges start to loosen and curl up, you may trim the loose edges. Do not remove adhesive strips completely unless your health care provider tells you to do that. Check your incision area every day for signs of infection. Check for: ? More redness, swelling, or pain. ? More fluid or blood. ? Warmth. ? Pus or a bad smell. Medicines Take hjct-zjx-xjhozxm and prescription medicines only as told by your health care provider. If you were prescribed an antibiotic medicine, use it as told by your health care provider. Do not stop using the antibiotic even if you start to feel better. Bathing Do not take baths, swim, or use a hot tub for 2 weeks, or until your incision has healed completely. If your health care provider approves, you may take showers after your dressing has been removed. Activity Return to your normal activities as told by your health care provider. Ask your health care provider what activities are safe for you. Avoid bending or twisting at your waist. Always bend at your knees. Do not sit for more than 20 30 minutes at a time. Lie down or walk between periods of sitting. Do not lift anything that is heavier than 10 lb (4.5 kg) or the limit that your health care provider tells you, until he or she says that it is safe. Do not drive for 2 weeks after your procedure or for as long as your health care provider tells you. Do not drive or use heavy machinery while taking prescription pain medicine. General instructions To prevent or treat constipation while you are taking prescription pain medicine, your health care provider may recommend that you: ? Drink enough fluid to keep your urine clear or pale yellow. ? Take jmuy-yas-keyikuy or prescription medicines. ? Eat foods that are high in fiber, such as fresh fruits and vegetables, whole grains, and beans. ? Limit foods that are high in fat and processed sugars, such as fried and sweet foods. Do breathing exercises as told. Keep all follow-up visits as told by your health care provider. This is important. Contact a health care provider if: You have more redness, swelling, or pain around your incision area. Your incision feels warm to the touch. You are not able to return to activities or do exercises as told by your health care provider. Get help right away if: You have: ? More fluid or blood coming from your incision area. ? Pus or a bad smell coming from your incision area. ? Chills or a fever. ? Episodes of dizziness or fainting while standing. You develop a rash. You develop shortness of breath or you have difficulty breathing. You cannot control when you urinate or have a bowel movement. You become weak. You are not able to use your legs. Summary After the procedure, it is common to have some pain around your incision area. You may also have muscle tightening (spasms) across the back. Follow instructions from your health care provider about how to care for your incision. Do not lift anything that is heavier than 10 lb (4.5 kg) or the limit that your health care provider tells you, until he or she says that it is safe. Contact your health care provider if you have more redness, swelling, or pain around your incision area or if your incision feels warm to the touch. These can be signs of infection. This information is not intended to replace advice given to you by your health care provider. Make sure you discuss any questions you have with your health care provider. Document Released: 02/23/2006 Document Revised: 07/19/2018 Document Reviewed: 01/21/2017 [employer] Patient Education 2020 [employer] ARLEEN SAME DAY SURGERY DISCHARGE INSTRUCTIONS PLEASE FOLLOW THE INSTRUCTIONS BELOW MARKED WITH AN X: _x__ Regular Diet: Start with clear liquids, then soup and crackers and gradually add other foods. _x__ Drink extra fluids. ___ Special Diet Instructions: ___ ACTIVITY: _x__ Avoid stress to suture line. Since you have had an anesthetic, it would be advisable not to drive, drink alcohol, or make major decisions over the next 24 hours. You may require more rest tonight and tomorrow. ___ May resume regular activity as tolerated. ___ Restrict activity as follows: ___ ___ Walk Only ___ ___ Do not go up and down stairs. ___ Do not ride in car until ___ ___ Do not drive car. ___ Do not have sexual intercourse. _x__ No heavy lifting, pushing or straining. _x__ Other: _Follow all verbal and written orders given by Dr. Calderon.__ BATHING/SHOWERING: ___ Sponge bathe until office visit. ___ Sitting in tub of warm water may relieve discomfort. ___ May tub bathe _x__ May shower ___ On day after surgery sit in tub of warm water to soak off dressing. DRESSING: _x__ Keep operative area dry and clean for _can shower with dressing on._ _x__ Check the operative area for signs of bleeding. Apply pressure to the bleeding site if necessary and call your physician. ___ Change dressing as necessary using sterile dressing material or bandaid. ___ Reinforce dressing as necessary. ___ Change and care for wound as follows: ___ ___ Wear bra for ___ days following breast surgery for comfort. ___ Change drip pad as needed. ___ Wear scrotal support for comfort. WATCH FOR SIGNS OF INFECTION: (Usually appears 36-48 hours after surgery) Increased temperature (101 degrees Fahrenheit or higher) Redness or swelling Increased pain Foul odor or drainage. If you have any questions, please call your doctor at the number listed on your follow up instructions. Follow all instructions given to you by your physician. Please complete and return the survey you will be receiving in the mail to help us better serve our patients. Form: [id number] ([id number]) R: 11/26 Additional Information VACCINATE! IT SAVES LIVES! Members of the community who have not yet received the COVID-19 vaccine and would like to receive it can visit one of [facility] vaccine clinics. There are many vaccine clinic locations within the State. For locations and available times, please visit https://gettheshot.coronavirus.[place] m[place].gov/. It is important to note that some COVID mobile vaccine clinics are held outdoors and may be canceled in rainy or stormy conditions. To learn more about pediatric vaccinations (ages 5-11), we invite you to visit the [facility] webpage. [email or web address] To learn more about the COVID-19 vaccine, we invite you to visit the CDC website for a list of frequently asked questions.https://www.cdc.gov/co ronavirus/2019-ncov/vaccines/faq .html [facility] Patient Portal Access Instructions: Stay connected with your healthcare team and access your personal medical information anytime with the [facility] Patient Portal. Please follow the directions below to create your [facility] account: 1.Access the email account you provided upon registration to the hospital/physician office.2.Look for an invitation email from [facility].3.Open the email and access the invitation link: Accept Invitation to [facility].4.Fill in the required gardner to create your account. To access your account, visit [email or web address]. Click the blue button labeled Access Patient Portal and then log in with the username and password that you created in the steps above. You will be able to view your test results, lab results, a summary of your visits, upcoming appointments and more. There is also a convenient messaging option where you can send secure messages to your provider. In addition, you will have the ability to download any documents or summaries to your computer and/or send the information securely to a physician. Remember that your healthcare information is confidential, so carefully consider who you will allow to register on the [facility] Patient Portal for access to your information. You can also access the [facility] Patient Portal on the [facility] Anywhere gerardo. Simply click on Patient Portal and then log into your account. If you would like to receive a full copy of your medical records, please contact the [facility] Medical Records Department by calling [phone], Sunday through Sunday between 8 a.m. and 4:30 p.m. HOW TO SAFELY DISPOSE OF PRESCRIPTION MEDICATIONS Please use one of the following methods to safely dispose of your unused medications. 1.Use a drug disposal kit: the drug disposal pouch allows you to safely discard your old and unused drugs. Ask your nurse to give you one when you are discharged.2.Visit a local take-back location: Many local pharmacies and police departments have programs that collect old and unwanted prescription drugs. Call your local pharmacy or go to http://Dexmo.Adim8/5S1Ud7n to find one close to you.3.Make use of household items: Use cat litter or old coffee grounds to dispose medications if other options are not available. Mix your drugs with these household products, seal them in an airtight container and throw it into the garbage. Call [facility]: [phone] to be sure your drugs can be disposed of in this way. Some medicines may require a different approach.4.Never flush your medications down the toilet. IF YOU HAVE BEEN PRESCRIBED AN OPIOID FOR PAIN If you have been prescribed an opioid (such as hydrocodone, oxycodone or morphine), it is critical to understand the possible side effects and risks of opioid pain medications. Even when taken as directed, opioids can have several side effects including: Tolerance, meaning you might need to take more of a medication for the same pain relief. Nausea, vomiting and/or constipation. Sleepiness, dizziness, dry mouth, confusion, depression or itching. Physical dependence, meaning you have withdrawal symptoms when a medication is stopped, can develop within a few days. KNOW YOUR RESPONSIBILITIES It is important to know exactly how much and how often to take the opioid pain medications you are prescribed. Never take opioids in higher amounts or more often than prescribed. Do not combine opioids with alcohol or other drugs that cause drowsiness, such as benzodiazepines, also known as benzos, including diazepam and alprazolam, muscle relaxants or sleep aids. Never sell or share prescription opioids. This is illegal. Store opioids in a secure place and out of reach of others (including children, family, friends and visitors). The last page of this document has been signed and retained as a CHART COPY. Signatures Patient Education Materials Spinal Cord Stimulator Implantation, Care After Laminectomy, Care After 1-SDS Discharge Instructions Template (05/2018) (CUSTOM) Medication Leaflets My discharge plan and instructions have been reviewed and explained to me and I,SHEA ROACH understand my current condition and have read and understand these discharge instructions. I have received a written copy of the plan/instructions. If I have questions, I am aware that I should contact my doctor. 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 Patient location: PACU. Assessment Postanesthesia assessment Vitals: Vital signs from flowsheet : Vital Signs 07/23/2023 18:35 EST Heart Rate Monitored 64 bpm Respiratory Rate 16 br/min Systolic Blood Pressure Non-Invasive 151 mmHg HI Diastolic Blood Pressure Non-Invasive 72 mmHg 07/23/2023 18:30 EST Heart Rate Monitored 67 bpm Systolic Blood Pressure Non-Invasive 172 mmHg HI Diastolic Blood Pressure Non-Invasive 70 mmHg Mean Arterial Pressure (NBP) 98 mmHg 07/23/2023 18:12 EST Heart Rate Monitored 63 bpm Respiratory Rate 16 br/min Systolic Blood Pressure Non-Invasive 164 mmHg HI Diastolic Blood Pressure Non-Invasive 69 mmHg Mean Arterial Pressure (NBP) 95 mmHg 07/23/2023 17:56 EST Heart Rate Monitored 69 bpm Respiratory Rate 16 br/min Systolic Blood Pressure Non-Invasive 172 mmHg HI Diastolic Blood Pressure Non-Invasive 76 mmHg Mean Arterial Pressure (NBP) 102 mmHg 07/23/2023 17:32 EST Temperature Temporal Artery 36.1 DegC Heart Rate Monitored 84 bpm Respiratory Rate 12 br/min LOW Systolic Blood Pressure Non-Invasive 164 mmHg HI Diastolic Blood Pressure Non-Invasive 68 mmHg 07/23/2023 17:30 EST Respiratory Rate - Anes 3 br/min br/min 07/23/2023 17:29 EST Systolic Blood Pressure Non-Invasive 224 mmHg mmHg Diastolic Blood Pressure Non-Invasive 117 mmHg mmHg 07/23/2023 17:26 EST Systolic Blood Pressure Non-Invasive 165 mmHg mmHg Diastolic Blood Pressure Non-Invasive 77 mmHg mmHg 07/23/2023 17:25 EST Temperature (Route Not Specified) 36.61 DegC DegC Heart Rate Monitored 66 bpm bpm Respiratory Rate - Anes 12 br/min br/min 07/23/2023 17:23 EST Systolic Blood Pressure Non-Invasive 181 mmHg mmHg Diastolic Blood Pressure Non-Invasive 78 mmHg mmHg 07/23/2023 17:20 EST Temperature (Route Not Specified) 36.57 DegC DegC Heart Rate Monitored 64 bpm bpm Respiratory Rate - Anes 11 br/min br/min Systolic Blood Pressure Non-Invasive 156 mmHg mmHg Diastolic Blood Pressure Non-Invasive 70 mmHg mmHg 07/23/2023 17:17 EST Systolic Blood Pressure Non-Invasive 140 mmHg mmHg Diastolic Blood Pressure Non-Invasive 70 mmHg mmHg 07/23/2023 17:15 EST Temperature (Route Not Specified) 36.56 DegC DegC Heart Rate Monitored 64 bpm bpm Respiratory Rate - Anes 10 br/min br/min 07/23/2023 17:14 EST Systolic Blood Pressure Non-Invasive 146 mmHg mmHg Diastolic Blood Pressure Non-Invasive 69 mmHg mmHg 07/23/2023 17:11 EST Systolic Blood Pressure Non-Invasive 104 mmHg mmHg Diastolic Blood Pressure Non-Invasive 55 mmHg mmHg 07/23/2023 17:10 EST Temperature (Route Not Specified) 36.56 DegC DegC Heart Rate Monitored 59 bpm bpm Respiratory Rate - Anes 10 br/min br/min 07/23/2023 17:08 EST Systolic Blood Pressure Non-Invasive 103 mmHg mmHg Diastolic Blood Pressure Non-Invasive 54 mmHg mmHg 07/23/2023 17:05 EST Temperature (Route Not Specified) 36.57 DegC DegC Heart Rate Monitored 58 bpm bpm Respiratory Rate - Anes 10 br/min br/min Systolic Blood Pressure Non-Invasive 112 mmHg mmHg Diastolic Blood Pressure Non-Invasive 58 mmHg mmHg 07/23/2023 17:02 EST Systolic Blood Pressure Non-Invasive 134 mmHg mmHg Diastolic Blood Pressure Non-Invasive 62 mmHg mmHg 07/23/2023 17:00 EST Temperature (Route Not Specified) 36.58 DegC DegC Heart Rate Monitored 61 bpm bpm Respiratory Rate - Anes 10 br/min br/min 07/23/2023 16:59 EST Systolic Blood Pressure Non-Invasive 157 mmHg mmHg Diastolic Blood Pressure Non-Invasive 74 mmHg mmHg 07/23/2023 16:56 EST Systolic Blood Pressure Non-Invasive 152 mmHg mmHg Diastolic Blood Pressure Non-Invasive 64 mmHg mmHg 07/23/2023 16:55 EST Temperature (Route Not Specified) 36.55 DegC DegC Heart Rate Monitored 55 bpm bpm Respiratory Rate - Anes 10 br/min br/min 07/23/2023 16:52 EST Systolic Blood Pressure Non-Invasive 90 mmHg mmHg Diastolic Blood Pressure Non-Invasive 52 mmHg mmHg 07/23/2023 16:50 EST Temperature (Route Not Specified) 36.52 DegC DegC Heart Rate Monitored 62 bpm bpm Respiratory Rate - Anes 10 br/min br/min Systolic Blood Pressure Non-Invasive 91 mmHg mmHg Diastolic Blood Pressure Non-Invasive 54 mmHg mmHg 07/23/2023 16:46 EST Systolic Blood Pressure Non-Invasive 98 mmHg mmHg Diastolic Blood Pressure Non-Invasive 54 mmHg mmHg 07/23/2023 16:45 EST Temperature (Route Not Specified) 36.5 DegC DegC Heart Rate Monitored 62 bpm bpm Respiratory Rate - Anes 10 br/min br/min 07/23/2023 16:44 EST Systolic Blood Pressure Non-Invasive 118 mmHg mmHg Diastolic Blood Pressure Non-Invasive 58 mmHg mmHg 07/23/2023 16:40 EST Temperature (Route Not Specified) 36.48 DegC DegC Heart Rate Monitored 74 bpm bpm Respiratory Rate - Anes 10 br/min br/min Systolic Blood Pressure Non-Invasive 141 mmHg mmHg Diastolic Blood Pressure Non-Invasive 71 mmHg mmHg 07/23/2023 16:37 EST Systolic Blood Pressure Non-Invasive 99 mmHg mmHg Diastolic Blood Pressure Non-Invasive 56 mmHg mmHg 07/23/2023 16:35 EST Temperature (Route Not Specified) 36.45 DegC DegC Heart Rate Monitored 64 bpm bpm Respiratory Rate - Anes 10 br/min br/min 07/23/2023 16:34 EST Systolic Blood Pressure Non-Invasive 106 mmHg mmHg Diastolic Blood Pressure Non-Invasive 58 mmHg mmHg 07/23/2023 16:32 EST Systolic Blood Pressure Non-Invasive 119 mmHg mmHg Diastolic Blood Pressure Non-Invasive 63 mmHg mmHg 07/23/2023 16:30 EST Temperature (Route Not Specified) 36.44 DegC DegC Heart Rate Monitored 69 bpm bpm Respiratory Rate - Anes 12 br/min br/min 07/23/2023 16:29 EST Systolic Blood Pressure Non-Invasive 141 mmHg mmHg Diastolic Blood Pressure Non-Invasive 69 mmHg mmHg 07/23/2023 16:25 EST Temperature (Route Not Specified) 36.45 DegC DegC Heart Rate Monitored 69 bpm bpm Respiratory Rate - Anes 12 br/min br/min Systolic Blood Pressure Non-Invasive 115 mmHg mmHg Diastolic Blood Pressure Non-Invasive 67 mmHg mmHg 07/23/2023 16:22 EST Systolic Blood Pressure Non-Invasive 105 mmHg mmHg Diastolic Blood Pressure Non-Invasive 57 mmHg mmHg 07/23/2023 16:20 EST Temperature (Route Not Specified) 36.52 DegC DegC Heart Rate Monitored 69 bpm bpm Respiratory Rate - Anes 10 br/min br/min Systolic Blood Pressure Non-Invasive 113 mmHg mmHg Diastolic Blood Pressure Non-Invasive 60 mmHg mmHg 07/23/2023 16:17 EST Systolic Blood Pressure Non-Invasive 128 mmHg mmHg Diastolic Blood Pressure Non-Invasive 63 mmHg mmHg 07/23/2023 16:15 EST Temperature (Route Not Specified) 36.58 DegC DegC Heart Rate Monitored 72 bpm bpm Respiratory Rate - Anes 10 br/min br/min 07/23/2023 16:14 EST Systolic Blood Pressure Non-Invasive 191 mmHg mmHg Diastolic Blood Pressure Non-Invasive 72 mmHg mmHg 07/23/2023 16:11 EST Systolic Blood Pressure Non-Invasive 237 mmHg mmHg Diastolic Blood Pressure Non-Invasive 99 mmHg mmHg 07/23/2023 16:10 EST Temperature (Route Not Specified) 36.57 DegC DegC Heart Rate Monitored 110 bpm bpm Respiratory Rate - Anes 0 br/min br/min 07/23/2023 16:05 EST Heart Rate Monitored 61 bpm bpm Respiratory Rate - Anes 0 br/min br/min Systolic Blood Pressure Non-Invasive 156 mmHg mmHg Diastolic Blood Pressure Non-Invasive 72 mmHg mmHg 07/23/2023 16:02 EST Systolic Blood Pressure Non-Invasive 200 mmHg mmHg Diastolic Blood Pressure Non-Invasive 68 mmHg mmHg 07/23/2023 11:15 EST Temperature Temporal Artery 36.1 DegC Apical Heart Rate 63 bpm Respiratory Rate 16 br/min Systolic Blood Pressure Non-Invasive 156 mmHg HI Diastolic Blood Pressure Non-Invasive 67 mmHg . Mental status: at preoperative baseline. Respiratory function: respirations are non-labored, Stable. Respiratory support: none. CV function: Stable. Cardiovascular support: none. Pain: Satisfactory. Nausea status: Satisfactory. Postoperative hydration status: within normal limits. Notes: Patient is sufficiently recovered from anesthesia to participate in the evaluation. No follow-up care needed. No complications post-anesthesia.. Digitally Signed by CHARO FERNÁNDEZ MD on 07/23/2023 07:05 PM [facility] 07-23-2023 Note ORIGINAL EXAMINATION: SPOT FLUOROSCOPIC IMAGES 07/23/2023 5:38 pm TECHNIQUE: Fluoroscopy was provided by the radiology department for procedure. Radiologist was not present during examination. FLUOROSCOPY DOSE AND TYPE: Radiation Exposure Index: Reference air Kerma mGy, 3.692 mGy COMPARISON: None HISTORY: ORDERING SYSTEM PROVIDED HISTORY: Reason for Exam: SPINAL CORD STIMULATOR, PAIN Intraprocedural imaging. FINDINGS: 4 spot intraoperative images are obtained demonstrating spinal stimulator. IMPRESSION: Intraprocedural fluoroscopic spot images as above. See separate procedure report for more information. I have personally reviewed the images of this examination and agree with the resident's findings and interpretation. Interpreted by: Russell Garcia Preliminary Report By: Jeannie Starr Electronically signed By Russell Garcia Dictated Date: 07/23/2023 8:23:35 PM Prelim Date: 07/23/2023 8:24:14 PM Sign Date: 07/23/2023 8:28:16 PM Ordering Provider: SHAY CALDERON [facility] 07-23-2023 Anesthesiology Consult note Patient: SHEA ROACH Age: 73 years Sex: Female : 1950 Associated Diagnoses: None Author: REY IBARRA MD Preoperative Information NPO > 8 hrs Anesthesia history Patient's history: negative. Family's history: negative. History of Present Illness The patient presents for preanesthesia evaluation with 73-year-old, , female, who presents for a partial thoracic 10 laminectomy for implantation of spinal cord stimulator lead, implanted spinal cord stimulator generator left gluteal region. 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 She denies having a known personal or family history of anesthesia reaction, or difficult intubation. She denies having diagnosed sleep apnea, STOP-BANG score, 2. She denies a history of smoking. She denies taking anticoagulants/antiplatelets. She is able to complete greater than 4 METS. She denies having dyspnea, chest pain, chest pressure, palpitations, syncopal episodes, or peripheral edema. 01/09/2023 stress test EKG portion: Impression: 1. EKG portion of Lexiscan stress test is negative for inducible ischemia. 2. Results of nuclear images will be reported separately. 3. Dr. Cartwright was available through telephone/telehealth during stress test. . Review of Systems Ear/Nose/Mouth/Throat: Negative except as documented in history of present illness. Respiratory: Negative except as documented in history of present illness. Cardiovascular: Negative except as documented in history of present illness. Gastrointestinal: Negative except as documented in history of present illness. Genitourinary: Negative except as documented in history of present illness. Endocrine: Negative except as documented in history of present illness. Musculoskeletal: Negative except as documented in history of present illness. Integumentary: Negative except as documented in history of present illness. Neurologic: Negative except as documented in history of present illness. Health Status Allergies: Allergic Reactions (Selected) Moderate Cymbalta- Serotonin sydnrome. Sulfa drug- Hives and rash. Severity Not Documented Biaxin- Rash. Lyrica- Double vision. NSAIDS- Hives and rash. Vancomycin- Ringing in ears and rash., Allergies (6) ActiveReaction Cymbaltaserotonin sydnrome sulfa drugRash BiaxinRash LyricaDouble vision NSAIDSRash vancomycinRash Current medications: (Selected) Inpatient Medications Ordered Kefzol: 2 gram(s), 20 mL, 240 mL/hr, IV Push (INT), PREOP pharm LR 1,000 mL: 20 mL/hr, Intravenous LR 1,000 mL: 20 mL/hr, Intravenous, Stop: 07/23/23 23:59:00 EST Prescriptions Prescribed FLUoxetine 40 mg oral capsule: 40 mg, 1 cap(s), Oral, qDay, for 90 day(s), 90 cap(s), 3 Refill(s) Synthroid 100 mcg (0.1 mg) oral tablet: 100 mcg, 1 tab(s), Oral, qHS, for 90 day(s), 90 tab(s), 3 Refill(s) cloNIDine 0.1 mg oral tablet: 0.1 mg, 1 tab(s), Oral, BID, for 30 day(s), 60 tab(s), 2 Refill(s) losartan 100 mg oral tablet: 100 mg, 1 tab(s), Oral, qDay, 90 tab(s), 1 Refill(s) oxyCODONE 10 mg oral tablet ( IMMEDIATE release ): 10 mg, 1 tab(s), Oral, q6hr, for 30 day(s), 120 tab(s), 0 Refill(s) traZODone 100 mg oral tablet: 100 mg, 1 tab(s), Oral, qHS, for 90 day(s), 90 tab(s), 3 Refill(s) Documented Medications Documented Vitamin D3 50,000 intl units (1250 mcg) oral capsule: 50,000 International_Unit, 1 cap(s), Oral, Sunday, 0 Refill(s) alendronate 35 mg oral tablet: 35 mg, 1 tab(s), Oral, Sunday, 0 Refill(s) hydroxychloroquine 200 mg oral tablet: 200 mg, 1 tab(s), Oral, qAM, 0 Refill(s), Medications (3) Active Scheduled: (1) ceFAZolin syringe 2 gram(s) 20 mL, IV Push (INT), PREOP pharm Continuous: (2) Lactated Ringers 1,000 mL 1,000 mL, Intravenous, 20 mL/hr Lactated Ringers 1,000 mL 1,000 mL, Intravenous, 20 mL/hr PRN: (0) Problem list: Medical Allergic rhinitis / SNOMED CT 545325881 / Confirmed Anemia / SNOMED CT 283826921 / Confirmed Anxiety / SNOMED CT 60945976 / Confirmed Basal cell carcinoma of skin of face / SNOMED CT 2433240792 / Confirmed Benign essential hypertension / SNOMED CT 2277902 / Confirmed Chronic kidney disease, stage 3b / SNOMED CT 0406421235 / Confirmed Chronic post-operative pain / SNOMED CT 3800802082 / Confirmed 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 / SNOMED CT 284209258 / Confirmed Claustrophobia / SNOMED CT 64708131 / Confirmed CLAUSTROPHOBIC - NO MASKS / Confirmed Degenerative disc disease / SNOMED CT 869128957 / Confirmed Depression / SNOMED CT 93399067 / Confirmed 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 / Confirmed Fibromyalgia / SNOMED CT 645559781 / Confirmed Hyperlipidemia / SNOMED CT 86110780 / Confirmed Hypothyroidism / SNOMED CT 13848421 / Confirmed Insomnia / SNOMED CT 072427200 / Confirmed Iron adverse reaction (disorder) Active / SNOMED CT 735182057 / Confirmed Iron deficiency anemia (disorder) Active / SNOMED CT 784954932 / Confirmed l4,l5 discectomy / Confirmed Lumbar back pain / SNOMED CT [id number] 3E7A / Confirmed lumbar cerebral spinal leak / Confirmed Lumbar postlaminectomy syndrome / SNOMED CT 456144159 / Confirmed Chronic lumbar radiculopathy / SNOMED CT 710784937 / Confirmed Lung nodules / SNOMED CT 5328514211 / Confirmed Nasal congestion / SNOMED CT 022496859 / Confirmed Nasal drainage / SNOMED CT 761902347 / Confirmed Osteoporosis / SNOMED CT 201959101 / Confirmed Palpitations / SNOMED CT 045742601 / Confirmed Screening for breast cancer / SNOMED CT 020534688 / Confirmed Screening for osteoporosis / SNOMED CT 277590800 / Confirmed 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 / SNOMED CT 366970813 / Confirmed Seasonal allergy / SNOMED CT 3161000326 / Confirmed Recurrent seasonal major depression, severe / SNOMED CT 7239365409 / Confirmed Lumbar canal stenosis / SNOMED CT 33288400 / Confirmed Lupus (systemic lupus erythematosus) / SNOMED CT 78658183 / Confirmed 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 / SNOMED CT 961838553 / Confirmed Inactive: Monoclonal gammopathy / SNOMED CT 263040669 Resolved: Adult hypothyroidism / SNOMED CT [id number] F5F0 Resolved: Chest pain / SNOMED CT 77216939 Resolved: COVID-19 / SNOMED CT 8429904093 Resolved: Failed back syndrome / SNOMED CT 0058153036 Resolved: Fibromyalgia / SNOMED CT 52984500 Resolved: HTN - Hypertension / SNOMED CT 1846356266 Resolved: Lumbar spinal stenosis / SNOMED CT 19834121 Resolved: Superficial peroneal neuropathy / SNOMED CT 3951487715 Canceled: Cellulitis / SNOMED CT 185583022 Canceled: Cirrhosis of liver / SNOMED CT 85332364 Canceled: Grief reaction / SNOMED CT 071171558, Active Problems (38) Allergic rhinitis Anemia Anxiety Basal cell carcinoma of skin of face Benign essential hypertension Chronic kidney disease, stage 3b Chronic lumbar radiculopathy Chronic post-operative pain Claustrophobia CLAUSTROPHOBIC - NO MASKS Degenerative disc disease Depression Erythema multiforme Fibromyalgia Hyperlipidemia Hypothyroidism Insomnia l4,l5 discectomy 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 jail prescription opiate use Lumbar back pain Lumbar canal stenosis lumbar cerebral spinal leak Lumbar postlaminectomy syndrome Lung nodules Lupus (systemic lupus erythematosus) Nasal congestion Nasal drainage Osteoporosis Palpitations Recurrent seasonal major depression, severe Screening for breast cancer Screening for osteoporosis Seasonal allergy Sjogren's syndrome 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 Superficial peroneal neuropathy (2027126030): Resolved. Fibromyalgia (05738986): Resolved. Failed back syndrome (1321771269): Resolved. HTN - Hypertension (2853741750): Resolved. Adult hypothyroidism ([id number] 5F0): Resolved. Chest pain (44935747): Resolved. COVID-19 (1431551397): Resolved. Procedure history: EGD (esophagogastroduodenoscopy) gastric outlet reduction (1662563775) on 03/27/2022 at 71 Years. Injection of hip joint (64480765) on 10/26/2021 at 71 Years. Comments: 12/28/2021 13:28 FILIPET - Miryam Jaramillo RN right Wrist incision (017679526) in the month of 01/2021 at 70 Years. Comments: 03/07/2022 8:48 ANABEL Morfin RN Vivi Stephens tendonitis surgery Fusion of lumbar spine (229786605) in 2020 at 70 Years. Colonoscopy (965079833) on 04/19/2020 at 69 Years. Lumbar epidural steroid injection (026509985) on 06/13/2018 at 67 Years. Radio-frequency ablation system probe, reusable (0098868381) on 07/11/2016 at 66 Years. Lumbar epidural steroid injection (301907292) on 07/08/2015 at 65 Years. Lumbar epidural steroid injection (257235028) on 04/08/2015 at 64 Years. Rotator cuff repair (731213189) in 2013 at 64 Years. Cataract extraction and implantation of intraocular lens (9062540130) in 2013 at 64 Years. Comments: 07/18/2023 14:32 TYLER Gil bilateral Lumbar discectomy (293104621) in 2006 at 57 Years. Hysterectomy (378991097) in 1989 at 40 Years. Rib (941457915) in 1984 at 35 Years. Comments: 02/04/2015 9:31 TYLER REDDYE first rib on left side for thoracic outlet syndrome Tonsillectomy (637995450) in 1978 at 29 Years. Appendectomy (899971146) in 1971 at 22 Years. Trigger finger (4214931372). Comments: 02/04/2015 9:32 TYLER REDDYE release bilaterl hands COVID-19 vaccination (4328939361). Social History Social & Psychosocial Habits Alcohol 07/23/2023Risk Assessment: Denies Alcohol Use 07/23/2023 Use: Never Substance Abuse 07/23/2023Risk Assessment: Denies Substance Abuse 07/23/2023 Use: Never Tobacco 07/23/2023 Tobacco Use: Never (less than 100 in l Comment: no smoke exposure - 06/11/2019 17:53 - Rena Gonzalez RN 07/23/2023Risk Assessment: Denies Tobacco Use Home/Environment 07/23/2023 Living situation: Home/Independent Safe place to go: Yes Domestic Concerns None Primary Mud Temperer: self Lives In Multilevel home Current Home Treatments None Special Services and Community Resources None Spouse Name Kenny Marital Status of Patient if Patient Independent Adult: Nutrition/Health 07/23/2023 Caffeine intake amount: 3 servings tea daily . Physical Examination Vital Signs(last 24 hrs) Last Charted Resp Rate 16 br/min (JUL 23 11:15) SBPH 156mmHg (JUL 23 11:15) DBP67 mmHg (JUL 23 11:15) Measurements from flowsheet : Measurements 07/23/2023 11:15 EST Height 157.5 cm Height in inches 62 inch(es) Admission Weight 51.6 kg Weight Lbs 113.5 lb Weight Method Actual Nimitz Body Weight 50.12 kg Type of Scale Used Bed scale Admission Body Mass Index 20.8 m2 General: Alert and oriented, No acute distress. Airway: Normal temporomandibular joint mobility, Normal mouth, Normal neck range of motion. Mallampati classification: II (soft palate, fauces, uvula visible). Dentition Evaluation: Intact, Own teeth. Respiratory: Lungs are clear to auscultation. Cardiovascular: Normal rate, Regular rhythm. Heart Sounds: Normal. Neurologic: Alert, Oriented. Review / Management Results review: Labs (Last four charted values) Na 138(JUL 23) K 4.9(JUL 23) CO2 29(JUL 23) Cl 107(JUL 23) Cr 0.77(JUL 23) BUN 16.0(JUL 23) Glucose 104(JUL 23) Ca 9.3(JUL 23) . Documentation reviewed: Current records. Assessment and Plan [place] [employer] Anesthesiologists (ASA) physical status classification: Class III. Anesthetic Preoperative Plan Premedication: intravenous. Anesthetic technique: General. Induction: intravenously. Maintenance airway: Oral endotracheal tube. Postoperative pain management: Per surgeon. Risks discussed: nausea, vomiting, sore throat, dental injury, hypotension, allergic reaction, serious complications. Informed consent: signed by patient. Digitally Signed by REY IBARRA MD on 07/23/2023 02:48 PM Digitally Signed by REY IBARRA MD on 07/23/2023 03:56 PM [facility] 05-31-2023 Note . MICRO - Microbiology PROCEDURE: Urine Culture [*1] SOURCE: Urine, Clean Catch BODY SITE: COLLECTED DATE/TIME: 05/28/2023 21:09 EDT RECEIVED DATE/TIME: 05/29/2023 15:33 EDT START DATE/TIME: 05/29/2023 15:33 EDT FREE TEXT SOURCE: FINAL REPORTS Final Report [] Verified Date/Time/Personnel: 05/31/2023 08:00 EDT <10,000 cfu/ml. No Significant growth. Sensitivity not indicated. PRELIMINARY REPORTS Preliminary Report [] Verified Date/Time/Personnel: 05/30/2023 10:06 EDT No growth to date Performing Locations *1: This test was performed at: [facility], [address] [place] [address], [id number] , [facility] ([place]) 03-23-2022 Hospital Discharg e instructions Patient Education 03/23/2022 17:17:49 Chest Pain, Uncertain Cause Uncertain Causes of Chest Pain Chest pain can happen for a number of reasons. Sometimes the cause can't be determined. If your condition does not seem serious, and your pain does not appear to be coming from your heart, your healthcare provider may recommend watching it closely. Sometimes the signs of a serious problem take more time to appear. Many problems not related to your heart can cause chest pain. These include: Musculoskeletal. Costochondritis is an inflammation of the tissues around the ribs that can occur from trauma or overuse injuries, or a strain of the muscles of the chest wall Respiratory. Pneumonia, collapsed lung (pneumothorax), or inflammation of the lining of the chest and lungs (pleurisy) Gastrointestinal. Esophageal reflux, heartburn, ulcers, or gallbladder disease Anxiety and panic disorders Nerve compression and inflammation Rare miscellaneous problems such as aortic aneurysm (a swelling of the large artery coming out of the heart) or pulmonary embolism (a blood clot in the lungs) Home care After your visit, follow these recommendations: Rest today and avoid strenuous activity. Take any prescribed medicine as directed. Be aware of any recurrent chest pain and notice any changes Follow-up care Follow up with your healthcare provider if you do not start to feel better within 24 hours, or as advised. Call 911 Call 911 if any of these occur: A change in the type of pain: if it feels different, becomes more severe, lasts longer, or begins to spread into your shoulder, arm, neck, jaw or back Shortness of breath or increased pain with breathing Weakness, dizziness, or fainting Rapid heart beat Crushing sensation in your chest When to seek medical advice Call your healthcare provider right away if any of the following occur: Cough with dark colored sputum (phlegm) or blood Fever of 100.4 F (38 C) or higher, or as directed by your healthcare provider Swelling, pain or redness in one leg [phone] [employer]. [address] [place] [address]. All rights reserved. This information is not intended as a substitute for professional medical care. Always follow your healthcare professional's instructions. Follow Up Care 03/23/2022 15:26:48 With:HASEEB PEARSON Address: [address] [place] [phone] When:2-[address] [facility] 03-23-2022 Emergency department Discharge summary Discharge Instructions Thank you for allowing [facility] to assist you with your healthcare needs. The following is important discharge information regarding your hospital visit. Diagnosis from Today's Visit Chest pain Anxiety SOB - Shortness of breath What to Do Next Instructions from Your Care Team No qualifying data available. Post Acute Orders No qualifying data available. You Need to Schedule the Following Appointments Follow Up with HASEEB PEARSON When Within 2-4 days Where: [address] [place] [phone] Allergies Cymbalta (serotonin sydnrome) sulfa drug (HIVES, RASH) Biaxin Lyrica (Double vision) NSAIDS (Hives, Rash) vancomycin Medications Please ask your primary doctor or pharmacist before taking any other medication not listed, including over the counter drugs, herbal medications, vitamins and or supplements as they may interact with your home medications. What How Much When Why Instructions Last Dose Unchanged acetaminophen-oxyCODONE (acetaminophen-oxycodone 325 mg-7.5 mg oral tablet) 1 tab(s) by mouth Every 6 hours Lumbar post-laminectomy syndrome Duration: 30 Days fill date 2021 Unchanged albuterol (albuterol MDI (90 mcg/ inh) CFC free inhalation aerosol) 2 puff(s) by inhalation Every 4 hours as needed for as needed for wheezing Sinusitis use with spacer chamber Unchanged alendronate (alendronate 35 mg oral tablet) 1 tab(s) by mouth Every week Duration: 84 Days Unchanged amLODIPine (amLODIPine 2.5 mg oral tablet) 1 tab(s) by mouth Once a day Unchanged cefdinir (cefdinir 300 mg oral capsule) 1 cap by mouth Every 12 hours Sinusitis SOB (shortness of breath) Duration: 10 Days Unchanged cholecalciferol (Vitamin D3 50,000 intl units (1250 mcg) oral capsule) 1 cap by mouth Every Sunday Unchanged cyclobenzaprine (cyclobenzaprine 10 mg oral tablet) 1 tab(s) by mouth Every day as needed for as needed for spasm Duration: 30 Days Pt will be using GoodRx to cover medication Unchanged doxycycline (doxycycline hyclate 100 mg oral capsule) 1 cap by mouth Two (2) times a day Sinusitis Duration: 10 Days Unchanged famotidine (Pepcid 20 mg oral tablet) 1 tab(s) by mouth Once a day Dehydration Unchanged levothyroxine (Synthroid 100 mcg (0.1 mg) oral tablet) 1 tab(s) by mouth Once a day Duration: 90 Days Unchanged losartan (losartan 100 mg oral tablet) 1 tab(s) by mouth Once a day Unchanged oxyCODONE (oxyCODONE 5 mg oral tablet ( IMMEDIATE release )) 1.5 tab(s) by mouth Every 6 hours Cervical post-laminectomy syndrome Duration: 30 Days Unchanged traZODone (traZODone 50 mg oral tablet) 1 tab(s) by mouth Daily at bedtime Duration: 90 Days Please take this list to your next doctor s visit. Bring all medications you take, including over the counter medications, herbals and other supplements with you to your doctor s visit. Patients and families are reminded to discard old lists and to update any records with all medication providers or retail pharmacies. Education Materials Uncertain Causes of Chest Pain Chest pain can happen for a number of reasons. Sometimes the cause can't be determined. If your condition does not seem serious, and your pain does not appear to be coming from your heart, your healthcare provider may recommend watching it closely. Sometimes the signs of a serious problem take more time to appear. Many problems not related to your heart can cause chest pain. These include: Musculoskeletal. Costochondritis is an inflammation of the tissues around the ribs that can occur from trauma or overuse injuries, or a strain of the muscles of the chest wall Respiratory. Pneumonia, collapsed lung (pneumothorax), or inflammation of the lining of the chest and lungs (pleurisy) Gastrointestinal. Esophageal reflux, heartburn, ulcers, or gallbladder disease Anxiety and panic disorders Nerve compression and inflammation Rare miscellaneous problems such as aortic aneurysm (a swelling of the large artery coming out of the heart) or pulmonary embolism (a blood clot in the lungs) Home care After your visit, follow these recommendations: Rest today and avoid strenuous activity. Take any prescribed medicine as directed. Be aware of any recurrent chest pain and notice any changes Follow-up care Follow up with your healthcare provider if you do not start to feel better within 24 hours, or as advised. Call 911 Call 911 if any of these occur: A change in the type of pain: if it feels different, becomes more severe, lasts longer, or begins to spread into your shoulder, arm, neck, jaw or back Shortness of breath or increased pain with breathing Weakness, dizziness, or fainting Rapid heart beat Crushing sensation in your chest When to seek medical advice Call your healthcare provider right away if any of the following occur: Cough with dark colored sputum (phlegm) or blood Fever of 100.4 F (38 C) or higher, or as directed by your healthcare provider Swelling, pain or redness in one leg [phone] [employer]. [address] [place] [address]. All rights reserved. This information is not intended as a substitute for professional medical care. Always follow your healthcare professional's instructions. Additional Information VACCINATE! IT SAVES LIVES! Members of the community who have not yet received the COVID-19 vaccine and would like to receive it can visit one of [facility] vaccine clinics. There are many vaccine clinic locations within the [facility]. For locations and available times, please visit [email or web address]. It is important to note that some COVID mobile vaccine clinics are held outdoors and may be canceled in rainy or stormy conditions. To learn more about pediatric vaccinations (ages 5-11), we invite you to visit the [facility] webpage. [email or web address] To learn more about the COVID-19 vaccine, we invite you to visit the [facility] website for a list of frequently asked questions. [email or web address] [facility] Patient Portal Access Instructions: Stay connected with your healthcare team and access your personal medical information anytime with the [facility] Patient Portal. If you would like a full copy of your medical records please contact the [facility] Medical Records Department Sunday through Sunday between 8a.m. and 4:30p.m. Please follow the directions below to access the portal: 1.Access the email account you provided upon [facility].2.Look for an invitation email from [facility].3.Open the email and access the invitation link: Accept Invitation to [facility]4.Fill in the required gardner to create your account. Sign into [email or web address] Y Amigos with your username and password that you created in the above steps to stay up to date. You can then view a summary of results, a summary of your visits, and the ability to download your summaries to your computer or send the information securely to a physician. Remember that your healthcare information is confidential, so carefully consider who you will allow to register on the [facility] Patient Portal for access to your information. You can also access the [facility] Patient Portal on the [employer] gerardo. Simply click on Health Records under Health Data and then click on the Arleen logo. HOW TO SAFELY DISPOSE OF PRESCRIPTION MEDICATIONS Please use one of the following methods to safely dispose of your unused medications. 1.Use a drug disposal kit: the drug disposal pouch allows you to safely discard your old and unused drugs. Ask your nurse to give you one when you are discharged.2.Visit a local take-back location: Many local pharmacies and police departments have programs that collect old and unwanted prescription drugs. Call your local pharmacy or go to http://bit.Adim8/0W0Gf0m to find one close to you.3.Make use of household items: Use cat litter or old coffee grounds to dispose medications if other options are not available. Mix your drugs with these household products, seal them in an airtight container and throw it into the garbage. Call [facility]: [phone] to be sure your drugs can be disposed of in this way. Some medicines may require a different approach.4.Never flush your medications down the toilet. IF YOU HAVE BEEN PRESCRIBED AN OPIOIDS FOR PAIN If you have been prescribed an opioid (such as hydrocodone, oxycodone or morphine), it is critical to understand the possible side effects and risks of opioid pain medications. Even when taken as directed, opioids can have several side effects including: Tolerance, meaning you might need to take more of a medication for the same pain relief. Nausea, vomiting and/or constipation. Sleepiness, dizziness, dry mouth, confusion, depression or itching. Physical dependence, meaning you have withdrawal symptoms when a medication is stopped ? this can develop within a few days. KNOW YOUR RESPONSIBILITIES It is important to know exactly how much and how often to take the opioid pain medications you are prescribed. Never take opioids in higher amounts or more often than prescribed. Do not combine opioids with alcohol or other drugs that cause drowsiness, such as benzodiazepines, also known as benzos, including diazepam and alprazolam, muscle relaxants or sleep aids. Never sell or share prescription opioids. This is illegal. Store opioids in a secure place and out of reach of others (including children, family, friends and visitors). The last page(s) of this document has been signed and retained as a CHART COPY Signatures Patient Education Materials Chest Pain, Uncertain Cause Medication Leaflets My discharge plan and instructions have been reviewed and explained to me and MARLEY Rowley MARGARET E understand my current condition and have read and understand these discharge instructions. I have received a written copy of the plan/instructions. If I have questions, I am aware that I should contact my doctor. 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 If you lose more fluids than you take in, you can become dehydrated. This means there are not enough fluids in your body for it to function right. Mild dehydration can cause weakness, confusion, or muscle cramps. In extreme cases, it can lead to brain damage and even . That's why prompt treatment is crucial. Risk factors Anyone can become dehydrated. But infants, children, and older adults are at greatest risk. You are most likely to lose fluids with severe vomiting, diarrhea, or a fever. Exercising or working hard especially in hot weather can also cause excess fluid loss. What to do Drinking liquids is the best way to prevent dehydration. Water is best, but juice or frozen pops can also help. For adults, don't use liquids that contain caffeine or alcohol to rehydrate. Your doctor may suggest electrolyte solutions for sick infants and young children. When to go to the emergency room (ER) Go to an ER right away for these symptoms: Adults Very dark urine and little urine output Dizziness, weakness, confusion, fainting Children Sunken eyes Little or no urine output (for infants, no wet diaper in 8 hours) Very dark urine Skin that doesn't bounce back quickly when pinched Crying without tears Lethargy, decreased activity, or increased sleepiness What to expect in the emergency room Your blood pressure, temperature, and heart rate will be checked. You may have blood or urine tests. The main treatment for dehydration is fluids. You may be given these to drink. Or, you may receive them through a vein in your arm. You also may be treated for diarrhea, vomiting, or a high fever. [id number] [employer]. [address] [place] [address]. All rights reserved. This information is not intended as a substitute for professional medical care. Always follow your healthcare professional's instructions. Follow Up Care 03/19/2022 16:35:26 With:HASEEB PEARSON APRN-[facility] Address: [address] [facility] [place] [phone] When:2-[address] [facility] 03-19-2022 Emergency department Discharge summary Discharge Instructions Thank you for allowing [facility] to assist you with your healthcare needs. The following is important discharge information regarding your hospital visit. Diagnosis from Today's Visit Dehydration Cough Sinus Pain/Congestion What to Do Next Instructions from Your Care Team No qualifying data available. Post Acute Orders No qualifying data available. You Need to Schedule the Following Appointments Follow Up with HASEEB PEARSON When Within 2-4 days Where: [address] [place] [phone] Allergies Cymbalta (serotonin sydnrome) sulfa drug (HIVES, RASH) Biaxin Lyrica (Double vision) NSAIDS (Hives, Rash) vancomycin Medications Please ask your primary doctor or pharmacist before taking any other medication not listed, including over the counter drugs, herbal medications, vitamins and or supplements as they may interact with your home medications. What How Much When Why Instructions Last Dose New famotidine (Pepcid 20 mg oral tablet) 1 tab(s) by mouth Once a day Dehydration Printed Prescription Unchanged acetaminophen-oxyCODONE (acetaminophen-oxycodone 325 mg-7.5 mg oral tablet) 1 tab(s) by mouth Every 6 hours Lumbar post-laminectomy syndrome Duration: 30 Days fill date 2021 Unchanged albuterol (albuterol MDI (90 mcg/ inh) CFC free inhalation aerosol) 2 puff(s) by inhalation Every 4 hours as needed for as needed for wheezing Sinusitis use with spacer chamber Unchanged alendronate (alendronate 35 mg oral tablet) 1 tab(s) by mouth Every week Duration: 84 Days Unchanged amLODIPine (amLODIPine 2.5 mg oral tablet) 1 tab(s) by mouth Once a day Unchanged cefdinir (cefdinir 300 mg oral capsule) 1 cap by mouth Every 12 hours Sinusitis SOB (shortness of breath) Duration: 10 Days Unchanged cholecalciferol (Vitamin D3 50,000 intl units (1250 mcg) oral capsule) 1 cap by mouth Every Sunday Unchanged cyclobenzaprine (cyclobenzaprine 10 mg oral tablet) 1 tab(s) by mouth Every day as needed for as needed for spasm Duration: 30 Days Pt will be using GoodRx to cover medication Unchanged doxycycline (doxycycline hyclate 100 mg oral capsule) 1 cap by mouth Two (2) times a day Sinusitis Duration: 10 Days Unchanged levothyroxine (Synthroid 100 mcg (0.1 mg) oral tablet) 1 tab(s) by mouth Once a day Duration: 90 Days Unchanged losartan (losartan 100 mg oral tablet) 1 tab(s) by mouth Once a day Unchanged oxyCODONE (oxyCODONE 5 mg oral tablet ( IMMEDIATE release )) 1.5 tab(s) by mouth Every 6 hours Cervical post-laminectomy syndrome Duration: 30 Days Unchanged traZODone (traZODone 50 mg oral tablet) 1 tab(s) by mouth Daily at bedtime Duration: 90 Days Please take this list to your next doctor s visit. Bring all medications you take, including over the counter medications, herbals and other supplements with you to your doctor s visit. Patients and families are reminded to discard old lists and to update any records with all medication providers or retail pharmacies. Medication Leaflets famotidine (oral/injection) (fam [place] jacque schmid) Heartburn Relief, Leader Acid Tenoner Operator, Pepcid, Pepcid AC, Pepcid AC Maximum Strength, Zantac 360 What is the most important information I should know about famotidine? Follow all directions on the label and package. Use exactly as directed. What is famotidine? Famotidine is used to treat and prevent ulcers in the stomach and intestines. It also treats conditions in which the stomach produces too much acid, such as Adam-Wilson syndrome. Famotidine also treats gastroesophageal reflux disease (GERD) and other conditions in which acid backs up from the stomach into the esophagus, causing heartburn. The Zantac 360 brand of this medicine does not contain ranitidine, a medicine that was withdrawn from market in the [place]. Famotidine may also be used for purposes not listed in this medication guide. What should I discuss with my healthcare provider before taking famotidine? Heartburn can feel like a heart attack. Get emergency medical help if you have chest pain that spreads to your jaw or shoulder. You should not use this medicine if you are allergic to famotidine or similar medicines such as ranitidine (Zantac), cimetidine (Tagamet), or nizatidine (Axid). Ask a doctor or pharmacist if this medicine is safe to use if you have: kidney disease; liver disease; cancer stomach; or long QT syndrome (in you or a family member). Ask a doctor before using this medicine if you are or . How should I take famotidine? Use exactly as directed on the label, or as prescribed by your doctor. Famotidine oral is taken by mouth. Famotidine injection is given in a vein if you are unable to take the medicine by mouth. You may take famotidine oral with or without food. Measure liquid medicine with the supplied syringe or a dose-measuring device (not a kitchen spoon). Most ulcers heal within 4 weeks of famotidine treatment, but it may take up to 8 weeks of using this medicine before your ulcer heals. Keep using the medication as directed. Call your doctor if the condition you are treating with famotidine does not improve, or if it gets worse while using famotidine. Your treatment may also include changes in diet or lifestyle habits. Follow all instructions of your doctor or dietitian. Store at room temperature away from moisture, heat, and light. Do not allow the liquid medicine to freeze. Throw away any unused famotidine liquid that is older than 30 days. What happens if I miss a dose? Take the medicine as soon as you can, but skip the missed dose if it is almost time for your next dose. Do not take two doses at one time. What happens if I overdose? Seek emergency medical attention or call the Poison Help line at . What should I avoid while taking famotidine? Drinking alcohol may increase the risk of damage to your stomach. Avoid taking other stomach acid reducers unless your doctor has told you to. However, you may take an antacid (such as Maalox, Mylanta, Gaviscon, Milk of Magnesia, Rolaids, or Tums) with famotidine. What are the possible side effects of famotidine? Get emergency medical help if you have signs of an allergic reaction: hives; difficult breathing; swelling of your face, lips, tongue, or throat. Stop using famotidine and call your doctor at once if you have: confusion, hallucinations, agitation, lack of energy; a seizure; fast or pounding heartbeats, sudden dizziness (like you might pass out); or unexplained muscle pain, tenderness, or weakness especially if you also have fever, unusual tiredness, and dark colored urine. Some side effects may be more likely in older adults and in people who have severe kidney disease. Common side effects may include: headache; dizziness; or constipation or diarrhea. This is not a complete list of side effects and others may occur. Call your doctor for medical advice about side effects. You may report side effects to FDA at 6-885-XGN-1070. What other drugs will affect famotidine? Famotidine oral can make it harder for your body to absorb other medicines you take by mouth. Tell your doctor if you are taking: cefditoren; dasatinib; delavirdine; fosamprenavir; or tizanidine (if you are taking famotidine liquid). This list is not complete. Other drugs may affect famotidine, including prescription and ihno-skr-wlsieij medicines, vitamins, and herbal products. Not all possible drug interactions are listed here. Where can I get more information? Your doctor or pharmacist can provide more information about famotidine. Remember, keep this and all other medicines out of the reach of children, never share your medicines with others, and use this medication only for the indication prescribed. Every effort has been made to ensure that the information provided by [employer]') is accurate, up-to-date, and complete, but no guarantee is made to that effect. Drug information contained herein may be time sensitive. [employer] information has been compiled for use by healthcare practitioners and consumers in the [place] and therefore [employer] does not warrant that uses outside of the [place] are appropriate, unless specifically indicated otherwise. [employer] drug information does not endorse drugs, diagnose patients or recommend therapy. [employer] drug information is an informational resource designed to assist licensed healthcare practitioners in caring for their patients and/or to serve consumers viewing this service as a supplement to, and not a substitute for, the expertise, skill, knowledge and judgment of healthcare practitioners. The absence of a warning for a given drug or drug combination in no way should be construed to indicate that the drug or drug combination is safe, effective or appropriate for any given patient. [facility] does not assume any responsibility for any aspect of healthcare administered with the aid of information [facility] provides. The information contained herein is not intended to cover all possible uses, directions, precautions, warnings, drug interactions, allergic reactions, or adverse effects. If you have questions about the drugs you are taking, check with your doctor, nurse or pharmacist. Copyright 8563-1361 [employer]. Version: 18.01. Revision Date: 01/27/2021. Education Materials Dehydration The human body is comprised largely of water. If you lose more fluids than you take in, you can become dehydrated. This means there are not enough fluids in your body for it to function right. Mild dehydration can cause weakness, confusion, or muscle cramps. In extreme cases, it can lead to brain damage and even . That's why prompt treatment is crucial. Risk factors Anyone can become dehydrated. But infants, children, and older adults are at greatest risk. You are most likely to lose fluids with severe vomiting, diarrhea, or a fever. Exercising or working hard especially in hot weather can also cause excess fluid loss. What to do Drinking liquids is the best way to prevent dehydration. Water is best, but juice or frozen pops can also help. For adults, don't use liquids that contain caffeine or alcohol to rehydrate. Your doctor may suggest electrolyte solutions for sick infants and young children. When to go to the emergency room (ER) Go to an ER right away for these symptoms: Adults Very dark urine and little urine output Dizziness, weakness, confusion, fainting Children Sunken eyes Little or no urine output (for infants, no wet diaper in 8 hours) Very dark urine Skin that doesn't bounce back quickly when pinched Crying without tears Lethargy, decreased activity, or increased sleepiness What to expect in the emergency room Your blood pressure, temperature, and heart rate will be checked. You may have blood or urine tests. The main treatment for dehydration is fluids. You may be given these to drink. Or, you may receive them through a vein in your arm. You also may be treated for diarrhea, vomiting, or a high fever. 9461-6804 [employer]. [address] [place] [address], [place] [address]. All rights reserved. This information is not intended as a substitute for professional medical care. Always follow your healthcare professional's instructions. Additional Information VACCINATE! IT SAVES LIVES! Members of the community who have not yet received the COVID-19 vaccine and would like to receive it can visit one of [facility] vaccine clinics. There are many vaccine clinic locations within the [facility]. For locations and available times, please visit [email or web address]. It is important to note that some COVID mobile vaccine clinics are held outdoors and may be canceled in rainy or stormy conditions. To learn more about pediatric vaccinations (ages 5-11), we invite you to visit the [facility] webpage. [email or web address] To learn more about the COVID-19 vaccine, we invite you to visit the [facility] website for a list of frequently asked questions. [email or web address] [facility] Patient Portal Access Instructions: Stay connected with your healthcare team and access your personal medical information anytime with the [facility] Patient Portal. If you would like a full copy of your medical records please contact the [facility] Medical Records Department Sunday through Sunday between 8a.m. and 4:30p.m. Please follow the directions below to access the portal: 1.Access the email account you provided upon registration to [facility].2.Look for an invitation email from [facility].3.Open the email and access the invitation link: Accept Invitation to [facility]4.Fill in the required gardner to create your account. Sign into www.[email or web address] with your username and password that you created in the above steps to stay up to date. You can then view a summary of results, a summary of your visits, and the ability to download your summaries to your computer or send the information securely to a physician. Remember that your healthcare information is confidential, so carefully consider who you will allow to register on the [facility] Patient Portal for access to your information. You can also access the [facility] Patient Portal on the [facility]. Simply click on Health Records under Health Data and then click on the mobifriends logo. HOW TO SAFELY DISPOSE OF PRESCRIPTION MEDICATIONS Please use one of the following methods to safely dispose of your unused medications. 1.Use a drug disposal kit: the drug disposal pouch allows you to safely discard your old and unused drugs. Ask your nurse to give you one when you are discharged.2.Visit a local take-back location: Many local pharmacies and police departments have programs that collect old and unwanted prescription drugs. Call your local pharmacy or go to http://Dexmo.Adim8/2C9Sb8v to find one close to you.3.Make use of household items: Use cat litter or old coffee grounds to dispose medications if other options are not available. Mix your drugs with these household products, seal them in an airtight container and throw it into the garbage. Call [facility]: [phone] to be sure your drugs can be disposed of in this way. Some medicines may require a different approach.4.Never flush your medications down the toilet. IF YOU HAVE BEEN PRESCRIBED AN OPIOIDS FOR PAIN If you have been prescribed an opioid (such as hydrocodone, oxycodone or morphine), it is critical to understand the possible side effects and risks of opioid pain medications. Even when taken as directed, opioids can have several side effects including: Tolerance, meaning you might need to take more of a medication for the same pain relief. Nausea, vomiting and/or constipation. Sleepiness, dizziness, dry mouth, confusion, depression or itching. Physical dependence, meaning you have withdrawal symptoms when a medication is stopped ? this can develop within a few days. KNOW YOUR RESPONSIBILITIES It is important to know exactly how much and how often to take the opioid pain medications you are prescribed. Never take opioids in higher amounts or more often than prescribed. Do not combine opioids with alcohol or other drugs that cause drowsiness, such as benzodiazepines, also known as benzos, including diazepam and alprazolam, muscle relaxants or sleep aids. Never sell or share prescription opioids. This is illegal. Store opioids in a secure place and out of reach of others (including children, family, friends and visitors). The last page(s) of this document has been signed and retained as a CHART COPY Signatures Patient Education Materials Dehydration Medication Leaflets famotidine (oral/injection) My discharge plan and instructions have been reviewed and explained to me and I,ROACH SHEA Bradford understand my current condition and have read and understand these discharge instructions. I have received a written copy of the plan/instructions. If I have questions, I am aware that I should contact my doctor. 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 03-19-2022 Note ORIGINAL EXAMINATION: ONE XRAY VIEW OF THE CHEST 03/19/2022 5:09 pm COMPARISON: Radiograph of the chest July 15, 2016 HISTORY: ORDERING SYSTEM PROVIDED HISTORY: Reason for Exam: cough/fever; suspect pneumonia FINDINGS: Cardiomediastinal silhouette is normal in size. No focal consolidation, pleural effusion, or pneumothorax. Unchanged surgical clips project over the left upper and lateral chest. Degenerative changes of the spine and bilateral shoulders. IMPRESSION: No focal consolidation or pleural effusion. Interpreted by: Russell Garcia Preliminary Report By: Russell Garcia Electronically signed By Russell Garcia Dictated Date: 03/19/2022 5:27:37 PM Prelim Date: 03/19/2022 5:28:34 PM Sign Date: 03/19/2022 5:28:34 PM Ordering Provider: [facility] 03-19-2022 Note ORIGINAL EXAMINATION: ONE XRAY VIEW OF THE CHEST 03/19/2022 5:09 pm COMPARISON: Radiograph of the chest July 15, 2016 HISTORY: ORDERING SYSTEM PROVIDED HISTORY: Reason for Exam: cough/fever; suspect pneumonia FINDINGS: Cardiomediastinal silhouette is normal in size. No focal consolidation, pleural effusion, or pneumothorax. Unchanged surgical clips project over the left upper and lateral chest. Degenerative changes of the spine and bilateral shoulders. IMPRESSION: No focal consolidation or pleural effusion. Interpreted by: Russell Garcia Preliminary Report By: Russell Garcia Electronically signed By Russell Garcia Dictated Date: 03/19/2022 5:27:37 PM Prelim Date: 03/19/2022 5:28:34 PM Sign Date: 03/19/2022 5:28:34 PM Ordering Provider: M[facility]O [facility] 03-19-2022 SARS-CoV-2 (COVID-19) RNA DAVONTE+probe Ql (Nph) Negative (03/19/22 4:52 PM) AO Auto Urine SS 03-06-2022 Note ORIGINAL EXAMINATION: MRI OF THE ABDOMEN LIMITED WITH CONTRAST, 03/06/2022 10:26 am TECHNIQUE: Multiplanar multisequence MRI of the abdomen limited was performed with the administration of intravenous contrast. COMPARISON: CT scan June 10, 2020 HISTORY: ORDERING SYSTEM PROVIDED HISTORY: Reason for Exam: CIRRHOSIS FINDINGS: Chemical shift imaging is unremarkable. The liver parenchyma is somewhat heterogeneous, and there is also a fine nodular surface contour of the liver. No focal area of restricted diffusion is visible. No focal lesions are seen on the pre contrast images. No abnormal early arterial phase enhancement is visible. Later phases show normal enhancement. Splenic and portal veins are patent. The spleen is within normal limits of size. There are small gastroesophageal junction varices seen. No additional contributory abnormality is evident. IMPRESSION: 1. Heterogeneous liver parenchyma compatible with the history of cirrhosis. No focal mass to suggest hepatocellular carcinoma. 2. Small gastroesophageal junction varices. These may be seen with portal hypertension. Interpreted by: Charo Raya MD Preliminary Report By: Charo Raya MD Electronically signed By Charo Raya MD Dictated Date: 03/06/2022 11:46:31 AM Prelim Date: 03/06/2022 11:52:54 AM Sign Date: 03/06/2022 11:52:54 AM Ordering Provider: KELSIE PEARSON [facility] 03-06-2022 Note ORIGINAL EXAMINATION: MRI OF THE ABDOMEN LIMITED WITH CONTRAST, 03/06/2022 10:26 am TECHNIQUE: Multiplanar multisequence MRI of the abdomen limited was performed with the administration of intravenous contrast. COMPARISON: CT scan June 10, 2020 HISTORY: ORDERING SYSTEM PROVIDED HISTORY: Reason for Exam: CIRRHOSIS FINDINGS: Chemical shift imaging is unremarkable. The liver parenchyma is somewhat heterogeneous, and there is also a fine nodular surface contour of the liver. No focal area of restricted diffusion is visible. No focal lesions are seen on the pre contrast images. No abnormal early arterial phase enhancement is visible. Later phases show normal enhancement. Splenic and portal veins are patent. The spleen is within normal limits of size. There are small gastroesophageal junction varices seen. No additional contributory abnormality is evident. IMPRESSION: 1. Heterogeneous liver parenchyma compatible with the history of cirrhosis. No focal mass to suggest hepatocellular carcinoma. 2. Small gastroesophageal junction varices. These may be seen with portal hypertension. Interpreted by: Charo Raya MD Preliminary Report By: Charo Raya MD Electronically signed By Charo Raya MD Dictated Date: 03/06/2022 11:46:31 AM Prelim Date: 03/06/2022 11:52:54 AM Sign Date: 03/06/2022 11:52:54 AM [facility] Lumbar canal stenosis Ordered: acetaminophen-hydrocodone, Dose = 1 tab(s), Oral, q6hr, PRN for pain, X 30 day(s), # 120 tab(s), 0 Refill(s), Pharmacy: [facility], Lumbar canal stenosis, 157.5, cm, 06/23/21 8:22:00 EDT, Height, 54.8, kg, 06/23/21 8:22:00 EDT, Dosing Weight Orders: Sodium Chloride 0.9% intravenous solution 500 mL, Start: 06/23/21 8:45:00 EDT, 12 hour(s), Stop date 06/23/21 20:44:00 EDT, Rate: 20 mL/hr IV Catheter Insertion/Care NPO for Procedure Sign Consent Vital Signs PLAN: 1. Continue home activity and exercise as usual. 2. Continue home pain medications as mentioned above. 3. For those who are smoking smoking cessation is needed. 4. I have reviewed the [place] Automated Rx Reporting System (OARRS) report for this patient for refill pattern and other prescriber involvement as part of the appropriate surveillance for the provision of acute and chronic controlled medications. The report was requested and reviewed on the date of this entry, and was considered in the prescribing process. 5. I have reviewed and agree with any documentation taken by the ancillary staff. 6. We will perform bilateral L2 selective nerve root block and I will repeat it in 4 to 5 weeks 7. Patient already stopped Cymbalta and she wants to switch from methadone to [place]. I will give her a prescription of [place] 10/325 mg every 6 hours as needed for pain. [facility] 11-04-2021 Hospital Discharge instructions Patient Education 06/23/2021 09:17:37 PM Discharge Instructions (11/19/2020) ([place]) [facility] Discharge Instructions POST PROCEDURE INSTRUCTIONS __x___There are no general limitations to your activities. You may experience some weakness for thenext 3-4 hours, in which case you should limit your activity until strength and sensation returns. x Your pain may increase for the next 24-48 hours, until the injection begins to relieve your pain. x Rest at home today. x Do not drive any vehicle, operate any heavy machinery or use any sharp objects for the remainder of the day. x Be cautious of stairways, since your coordination may be impaired and do not drink alcoholic beverages or make major decisions for 24 hours. x May resume driving a car in ____6___ hours if no sedation, and 24 hours with sedation. x Resume regular activity. x Resume your regular diet. x Progress diet slowly, starting with water. If no difficulty with swallowing, progress to clear liquids (tea, broth, anita duane) and then on to solids. x Resume aspirin products/blood thinners in 24 hours. Start Lovenox injections or other blood thinners in 24 hours after procedure. x Keep bandaid dry and remove in 24 hours. MEDICATIONS: BEFORE PROCEDURE x Physician s Pre-procedure Instruction Sheet given to patient. x Stop Coumadin/Pradaxa/Eliquis/Xarelto for 5 days before procedure - date . Have ProTime drawn on (Try to have drawn at [facility] to speed results to us). x Stop blood thinners Plavix, Pletal for 10 days before procedure date . x Stop Aspirin, Persantine, Aggrenox for 7 days before procedure date . x Stop Lovenox 24 hours before your appointment time. x Stop anti-inflammatory medications (Aleve, Advil, Mobic, Naprosyn, etc.) for 5 days before procedure. x Stop ALL Supplements and Vitamins for 10 days before your procedure. x Take blood pressure medications the day of your procedure. x Do not eat ____6 hours before procedure. x Do not drink ____2____ hours before procedure. x May have clear liquids (water, plain tea/coffee, clear soda) up to 2 hours before procedure. x Bring someone to drive you home. 06/23/2021 09:17:[address] [facility] Pre-Procedure Instructions and Important Information Dr. Vazquez As a patient, it is important for you to understand and follow all instructions listed below beforeyou come for you procedure appointment. If there is anything listed below that you are not sure of,or do not understand, please ask or call us at the [facility] at [phone] before your procedure appointment. 1.Approval to stop your prescribed blood thinner will be obtained from your primary care doctor or inside sales account executive. Once approval has been obtained, you will need to stop all blood thinners as instructed, before your procedure date. Depending on the blood thinner you are taking, you will be told exactly how many days before you will need to discontinue taking the medication. a.For Warfarin (Coumadin), the physician will give you an order to have a blood test to check your Protime/INR the day before the procedure. 2.Stop all aspirin and aspirin products for a full seven (7) days before your procedure. 3.Stop all non-steroidal anti-inflammatory (NSAIDS) medication for a full five (5) days before yourprocedure. b.NSAIDS: Ibuprofen (Motrin, Advil), Naproxen (Aleve, Naprosyn), Meloxicam (Mobic), Diclofenac (Voltaren), Indomethacin (Indocin), Relafen, or other medications as instructed. 4.Stop all over the counter cold, sinus, flu, or headache medications for a full five (5) days before the procedure. These medications can contain aspirin or NSAIDS. 5.Stop all natural, herbal or vitamin supplements (Vit. E, Fish Oil, etc.) for a full ten (10) daysbefore the procedure. 6.Do not EAT or DRINK anything eight (8) hours before your procedure. Please understand, there are no exceptions to the above medication instructions. Failure to follow will result in your procedure being cancelled Please call with any changes in your medical condition/history before your procedure appointment, this includes the following: a.Any type of surgery, other injections given by another physician b.Recent infections, such as: Colds, flu, sinus infection, urinary tract infection, pneumonia, or any skin wound or infection of any kind. c.Change in medications. If you have any of the listed changes in your medical history, OR if you have failed to follow the above instructions for medication, your procedure will need to be cancelled and rescheduled for another date. The above instructions are FOR YOUR SAFETY. Failure to follow the above instructions and, or failure to inform your physician of any health issues may result in serious complications that include, but are not limited to, bleeding, serious infection, paralysis, or . [facility] 10-30-2020 NoteNAME: SHEA ROAHC MR#: [id number] ADMIT DATE: 06/18/2020 DISCHARGE DATE: 06/20/2020 DISCHARGE SUMMARY HISTORY OF PRESENT ILLNESS: The patient is a 69-year-old female who is admitted for lumbar spine surgery. For further details of her admitting history, past medical and surgical history, please refer to admitting surgical assessment. HOSPITAL COURSE: The patient was admitted with a diagnosis of spinal stenosis, lumbar neurogenic claudication, DDD instability. Surgical procedure, risks, benefits, complications, and alternatives were discussed with the patient and consent was obtained to perform surgery. L3-L4, L4-L5 ALIF, cage, plate ICDG were performed on 06/18/2020 under general endotracheal intubation with inhalation narcotic anesthesia. She tolerated the procedure well and recovered satisfactorily. Postoperatively, she was complaining of minimal pain around surgical site, which was well controlled with pain medications. The patient was also evaluated by Physical Therapy, Occupational Therapy, and other medical doctors. Her condition improved gradually. Currently, the patient is pleasant, tolerating diet, ambulating and has good sensation and strength to bilateral lower extremities. The patient is able to plantar and dorsiflex with good strength. Incision is well approximated with no drainage, edema, or erythema noted. She denies any numbness, tingling sensation, fever, chills, nausea, vomiting, chest pain, shortness of breath or headache. Overall, she is substantially improved. She was evaluated by the treatment team and judged to be appropriate for discharge. LABORATORY AND TEST RESULTS: The patient had all the routine lab work done and any abnormalities were taken into consideration and were addressed. DIAGNOSES: Spinal stenosis, lumbar neurogenic claudication, DDD instability. DISCHARGE INSTRUCTIONS: The patient was instructed to call 911 or to present to the nearest emergency room in case of any emergencies. She is being discharged on following medication: Losartan potassium 50 mg tablet per oral every day at 12 noon; Norvasc 2.5 mg tablet per oral 2 times daily; Prozac 10 mg capsule per oral at bedtime; Synthroid 100 mcg tablet per oral at bedtime; vitamin B complex/folic acid 0.4 mg tablet per oral every day; vitamin B12, 1000 mcg tablet per oral every day; Zanaflex 4 mg tablet per oral as needed; [place] 10-325 mg one each tablet per oral every 4 hours as needed; cholecalciferol 25 mcg 1000 unit tablet per oral weekly; docusate sodium 100 mg capsule per oral 2 times daily. She was advised to abstain from alcohol, drink lots of fluids, eat fresh fruits and vegetables, walk every hour and perform incentive spirometer 10 times per hour while awake. She was also [facility] PT NAME: SHEA ROACH MR#: [id number] [address] [place] [address] ACCT: [id number] : 48 DISCHARGE SUMMARY advised to get all of her prescriptions filled as soon as possible and continue taking all of her medications as directed and keep all of her outpatient followup appointment as scheduled. She is being discharged back to her home with self care. TERRY SHELTON MD, MD NIEVES/MODL/[id number] E/S: Terry Shelton MD 06/29/20 0831 Electronically Signed [facility] PT NAME: SHEA ROACH MR#: [id number] [address] [place] [address] ACCT: [id number] : 48 [facility] Future Appointments Appointment Date:06/13/2021 02:00:00 PM Scheduled Provider: Location:[facility] Appointment Type:MA Mammogram Screening Bilateral w/ Jan Appointment Date:06/13/2021 02:30:00 PM Scheduled Provider: Location:[facility] Appointment Type:BD Bone Density DEXA Axial Skeleton Appointment Date:06/23/2021 08:30:00 AM Scheduled Provider: Location:[facility] [place] Appointment Type:PM Transforaminal Inj Lumbar/Sacral BILA Future Scheduled Tests Radiology* BD Bone Density DEXA Axial Skeleton 06/13/21 * MA Mammo Screening Bilateral w/ Jan 06/13/[address] [facility] Evaluation + Plan note Future Appointments Appointment Date:06/22/2021 03:30:00 PM Scheduled Provider: Location:[facility] Appointment Type:MA Mammogram Screening Bilateral w/ Jan Appointment Date:06/23/2021 08:30:00 AM Scheduled Provider: Location:[facility] [place] Appointment Type:PM Transforaminal Inj Lumbar/Sacral BILA Future Scheduled Tests Radiology* MA Mammo Screening Bilateral w/ Jan 06/22/[address] [facility] Evaluation + Plan note Future Appointments Appointment Date:06/23/2021 08:30:00 AM Scheduled Provider: Location:[facility] [place] Appointment Type:PM Transforaminal Inj Lumbar/Sacral BILA [facility] Evaluation + Plan note Future Appointments Appointment Date:08/24/2021 10:00:00 AM Scheduled Provider:HARLEY DELAROSA Location:[facility] Appointment Type:PC Acute Appointment Date:09/06/2021 02:30:00 PM Scheduled Provider:BENY ORTIZ MD Location:[facility] Appointment Type:HEM ONC New Patient [facility] Evaluation + Plan note Future Appointments Appointment Date:09/06/2021 02:30:00 PM Scheduled Provider:BENY ORTIZ MD Location:[facility] Appointment Type:HEM ONC New Patient [facility] Evaluation + Plan note Future Appointments Appointment Date:09/07/2021 09:30:00 AM Scheduled Provider: Location:[facility] Appointment Type:CT Spine Lumbar w/o Contrast Appointment Date:03/06/2022 01:45:00 PM Scheduled Provider:BENY ORTIZ MD Location:[facility] Appointment Type:[facility] ONC OV Follow Up Diagnostic Tests Pending * DOMINIQUE (serum) 09/06/21 * [place] [facility]/Lambda, Free, Serum 09/06/21 Future Scheduled Tests Radiology* CT Spine Lumbar w/o Contrast 09/07/21 [facility] Evaluation + Plan note Future Appointments Appointment Date:03/06/2022 01:45:00 PM Scheduled Provider:BENY ORTIZ MD Location:[facility] Appointment Type:HEM ONC OV Follow Up [facility] Evaluation + Plan note Future Appointments Appointment Date:10/26/2021 12:25:00 PM Scheduled Provider:ROLO VAZQUEZ MD Location:PM Office Appointment Type:PM OV Appointment Date:03/06/2022 01:45:00 PM Scheduled Provider:BENY ORTIZ MD Location:[facility] Appointment Type:HEM ONC OV Follow Up [facility] Evaluation + Plan note Future Appointments Appointment Date:10/27/2021 08:15:00 AM Scheduled Provider: Location:[facility] Appointment Type:PT Outpatient Evaluation Appointment Date:03/06/2022 01:45:00 PM Scheduled Provider:BENY ORTIZ MD Location:[facility] Appointment Type:HEM ONC OV Follow Up [facility] Evaluation + Plan note Future Appointments Appointment Date:02/07/2022 02:30:00 PM Scheduled Provider:HASEEB PEARSON Location:[facility] Appointment Type:PC OV Appointment Date:03/06/2022 01:45:00 PM Scheduled Provider:BENY ORTIZ MD Location:[facility] Appointment Type:HEM ONC OV Follow Up Appointment Date:03/07/2022 08:30:00 AM Scheduled Provider:ROLO VAZQUEZ MD Location:PM Office Appointment Type:PM OV Diagnostic Tests Pending * .CBC Path Review 02/02/[address] [facility] Evaluation + Plan note Future Appointments Appointment Date:03/07/2022 08:30:00 AM Scheduled Provider:ROLO VAZQUEZ MD Location:PM Office Appointment Type:PM OV Appointment Date:08/01/2022 10:15:00 AM Scheduled Provider:HASEEB PEARSON Location:[facility] Appointment Type:PC OV Appointment Date:08/03/2022 01:45:00 PM Scheduled Provider:BENY ORTIZ MD Location:[facility] Appointment Type:HEM ONC OV Follow Up Future Scheduled Tests Laboratory* [facility], Free, Serum 09/06/22 * Ferritin 09/06/22 * Complete Blood Count 09/06/22 * DOMINIQUE (serum) 09/06/22 * IgG 09/06/22 * Iron Studies 09/06/22 * Protein Electrophoresis Panel 09/06/22 * Complete Metabolic Panel 09/06/[address] [facility] Evaluation + Plan note Future Appointments Appointment Date:03/07/2022 08:30:00 AM Scheduled Provider:ROLO VAZQUEZ MD Location:PM Office Appointment Type:PM OV Appointment Date:08/01/2022 10:15:00 AM Scheduled Provider:HASEEB PEARSON Location:[facility] Appointment Type:PC OV Appointment Date:08/03/2022 01:45:00 PM Scheduled Provider:BENY ORTIZ MD Location:[facility] Appointment Type:HEM ONC OV Follow Up Diagnostic Tests Pending * IgG 03/06/22 * [facility] [facility]/Lambda, Free, Serum 03/06/22 * DOMINIQUE (serum) 03/06/22 Future Scheduled Tests Laboratory* [facility], Free, Serum 09/06/22 * Ferritin 09/06/22 * Complete Blood Count 09/06/22 * DOMINIQUE (serum) 09/06/22 * IgG 09/06/22 * Iron Studies 09/06/22 * Protein Electrophoresis Panel 09/06/22 * Complete Metabolic Panel 09/06/22 [facility] Evaluation + Plan note Future Appointments Appointment Date:05/10/2022 12:00:00 PM Scheduled Provider:ROLO VAZQUEZ MD Location:PM Office Appointment Type:PM OV Appointment Date:08/01/2022 10:15:00 AM Scheduled Provider:HASEEB PEARSON APRN-ALIGNER Location:[facility] Appointment Type:PC OV Appointment Date:08/03/2022 01:45:00 PM Scheduled Provider:BENY ORTIZ MD Location:[facility] Appointment Type:HEM ONC OV Follow Up Future Scheduled Tests Laboratory* [facility] [facility], Free, Serum 09/06/22 * Ferritin 09/06/22 * Complete Blood Count 09/06/22 * DOMINIQUE (serum) 09/06/22 * IgG 09/06/22 * Iron Studies 09/06/22 * Protein Electrophoresis Panel 09/06/22 * Complete Metabolic Panel 09/06/22 [facility] Evaluation + Plan note Future Appointments Appointment Date:05/10/2022 12:00:00 PM Scheduled Provider:ROLO VAZQUEZ MD Location:PM Office Appointment Type:PM OV Appointment Date:08/01/2022 10:15:00 AM Scheduled Provider:HASEEB PEARSON APRN-ALIGNER Location:[facility] Appointment Type:PC OV Appointment Date:08/03/2022 01:45:00 PM Scheduled Provider:BENY ORTIZ MD Location:[facility] Appointment Type:HEM ONC OV Follow Up Diagnostic Tests Pending * Comprehensive Autoimmune Panel 03/07/22 Future Scheduled Tests Laboratory* [facility] [facility], Free, Serum 09/06/22 * Ferritin 09/06/22 * Complete Blood Count 09/06/22 * DOMINIQUE (serum) 09/06/22 * IgG 09/06/22 * Iron Studies 09/06/22 * Protein Electrophoresis Panel 09/06/22 * Complete Metabolic Panel 09/06/[address] [facility] Evaluation + Plan note Future Appointments Appointment Date:05/10/2022 12:00:00 PM Scheduled Provider:ROLO VAZQUEZ MD Location:PM Office Appointment Type:PM OV Appointment Date:08/01/2022 10:15:00 AM Scheduled Provider:HASEEB PEARSON Location:[facility] Appointment Type:PC OV Appointment Date:08/03/2022 01:45:00 PM Scheduled Provider:BENY ORTIZ MD Location:[facility] Appointment Type:HEM ONC OV Follow Up Diagnostic Tests Pending * Protein Electrophoresis Panel 04/19/22 * DOMINIQUE (serum) 04/19/22 * Liver Kidney Microsome IgG Autoabs 04/19/22 Future Scheduled Tests Laboratory* [place] [facility], Free, Serum 09/06/22 * Ferritin 09/06/22 * Complete Blood Count 09/06/22 * DOMINIQUE (serum) 09/06/22 * IgG 09/06/22 * Iron Studies 09/06/22 * Protein Electrophoresis Panel 09/06/22 * Complete Metabolic Panel 09/06/[address] [facility] Evaluation + Plan note Future Appointments Appointment Date:07/18/2022 08:00:00 AM Scheduled Provider:ROLO VAZQUEZ MD Location:PM Office Appointment Type:PM OV Appointment Date:08/01/2022 10:15:00 AM Scheduled Provider:HASEEB PEARSON Location:[facility] Appointment Type:PC OV Appointment Date:08/03/2022 01:45:00 PM Scheduled Provider:BENY ORTIZ MD Location:[facility] Appointment Type:HEM ONC OV Follow Up Future Scheduled Tests Laboratory* [place] [facility], Free, Serum 09/06/22 * Ferritin 09/06/22 * Complete Blood Count 09/06/22 * DOMINIQUE (serum) 09/06/22 * IgG 09/06/22 * Iron Studies 09/06/22 * Protein Electrophoresis Panel 09/06/22 * Complete Metabolic Panel 09/06/22 [facility] Evaluation + Plan note Future Appointments Appointment Date:08/01/2022 10:30:00 AM Scheduled Provider:HASEEB PEARSON Location:[facility] Appointment Type:PC OV Appointment Date:08/03/2022 01:45:00 PM Scheduled Provider:BENY ORTIZ MD Location:[facility] Appointment Type:HEM ONC OV Follow Up Appointment Date:08/15/2022 02:00:00 PM Scheduled Provider:ROLO VAZQUEZ MD Location:PM Office Appointment Type:PM OV Diagnostic Tests Pending * [facility] [facility], Free, Serum 07/27/22 * DOMINIQUE (serum) 07/27/22 [facility] Evaluation + Plan note Future Appointments Appointment Date:08/21/2022 11:30:00 AM Scheduled Provider: Location:[facility] Appointment Type:MA Mammogram Screening Bilateral w/ Jan Appointment Date:01/30/2023 11:30:00 AM Scheduled Provider:HASEEB PEARSON Location:[facility] Appointment Type:PC OV Appointment Date:05/04/2023 01:00:00 PM Scheduled Provider:BENY ORTIZ MD Location:[facility] Appointment Type:HEM ONC OV Follow Up Future Scheduled Tests Laboratory* [place] [facility], Free, Serum 05/04/23 * Ferritin 05/04/23 * Complete Blood Count 05/04/23 * Lipid Profile 01/30/23 * DOMINIQUE (serum) 05/04/23 * Iron Studies 05/04/23 * Protein Electrophoresis Panel 05/04/23 * Complete Metabolic Panel 01/30/23 * Complete Metabolic Panel 05/04/23 Radiology* MA Mammo Screening Bilateral w/ Jan 08/21/22 [facility] Evaluation + Plan note Future Appointments Appointment Date:11/29/2022 11:30:00 AM Scheduled Provider:HASEEB PEARSON Location:[facility] Appointment Type:PC OV Appointment Date:01/30/2023 11:30:00 AM Scheduled Provider:HASEEB PEARSON Location:[facility] Appointment Type:PC OV Appointment Date:05/04/2023 01:00:00 PM Scheduled Provider:BENY ORTIZ MD Location:[facility] Appointment Type:HEM ONC OV Follow Up Future Scheduled Tests Laboratory* [facility]/Lambda, Free, Serum 05/04/23 * Ferritin 05/04/23 * Complete Blood Count 05/04/23 * Lipid Profile 01/30/23 * DOMINIQUE (serum) 05/04/23 * Iron Studies 05/04/23 * Protein Electrophoresis Panel 05/04/23 * Complete Metabolic Panel 01/30/23 * Complete Metabolic Panel 05/04/23 [facility] Pain Management Evaluation + Plan note Future Appointments Appointment Date:01/30/2023 11:30:00 AM Scheduled Provider:HASEEB PEARSON Location:[facility] Appointment Type:PC OV Appointment Date:05/04/2023 01:00:00 PM Scheduled Provider:BENY ORTIZ MD Location:[facility] Appointment Type:[facility] OV Follow Up Future Scheduled Tests Laboratory* [facility], Free, Serum 05/04/23 * Ferritin 05/04/23 * Complete Blood Count 05/04/23 * Lipid Profile 01/30/23 * DOMINIQUE (serum) 05/04/23 * Iron Studies 05/04/23 * Protein Electrophoresis Panel 05/04/23 * Complete Metabolic Panel 01/30/23 * Complete Metabolic Panel 05/04/23 [facility] Pain Management Evaluation + Plan note Future Appointments Appointment Date:01/16/2023 01:30:00 PM Scheduled Provider:ROLO VAZQUEZ MD Location:PM Office Appointment Type:PM OV Appointment Date:01/30/2023 11:30:00 AM Scheduled Provider:HASEEB PEARSON Location:[facility] Appointment Type:PC OV Appointment Date:05/04/2023 01:00:00 PM Scheduled Provider:BEYN ORTIZ MD Location:[facility] Appointment Type:[facility]M ONC OV Follow Up Diagnostic Tests Pending * Protein Electrophoresis Panel 12/28/22 Future Scheduled Tests Laboratory* [facility], Free, Serum 05/04/23 * Ferritin 05/04/23 * Complete Blood Count 05/04/23 * Lipid Profile 01/30/23 * DOMINIQUE (serum) 05/04/23 * Iron Studies 05/04/23 * Albumin/Creatinine Ratio, Random Urine 12/27/22 * Protein Electrophoresis Panel 12/27/22 * Protein Electrophoresis Panel 05/04/23 * Complete Metabolic Panel 01/30/23 * Complete Metabolic Panel 05/04/[address] [facility] Evaluation + Plan note Future Appointments Appointment Date:01/18/2023 03:00:00 PM Scheduled Provider:BENY ORTIZ MD Location:[facility] Appointment Type:[facility] OV Follow Up Appointment Date:01/30/2023 11:30:00 AM Scheduled Provider:HASEEB PEARSON Location:[facility] Appointment Type:PC OV Appointment Date:05/04/2023 01:00:00 PM Scheduled Provider:BENY ORTIZ MD Location:[facility] Appointment Type:[facility] OV Follow Up Future Scheduled Tests Laboratory* Lipid Profile 01/30/23 * Albumin/Creatinine Ratio, Random Urine 12/27/22 * Protein Electrophoresis Panel 12/27/22 * Complete Metabolic Panel 01/30/23 [facility] Pain Management Evaluation + Plan note Future Appointments Appointment Date:01/30/2023 11:30:00 AM Scheduled Provider:HASEEB PEARSON Location:[facility] Appointment Type:PC OV Appointment Date:11/26/2023 01:15:00 PM Scheduled Provider:BENY ROTIZ MD Location:[facility] Appointment Type:[facility]M ONC OV Follow Up Diagnostic Tests Pending * Protein Electrophoresis Urine 01/18/23 * DOMINIQUE (urine) 01/18/23 Future Scheduled Tests Laboratory* [facility], Free, Serum 10/19/23 * Ferritin 10/19/23 * AFP tumor marker 10/19/23 * Complete Blood Count 10/19/23 * Lipid Profile 01/30/23 * DOMINIQUE (serum) 10/19/23 * Iron Studies 10/19/23 * Albumin/Creatinine Ratio, Random Urine 12/27/22 * Protein Electrophoresis Panel 12/27/22 * Protein Electrophoresis Panel 10/19/23 * Complete Metabolic Panel 01/30/23 * Complete Metabolic Panel 10/19/23 [facility] Evaluation + Plan note Future Appointments Appointment Date:03/26/2023 09:30:00 AM Scheduled Provider:TERRY LOPEZ MD Location:[facility] PM Appointment Type:PM OV Appointment Date:05/01/2023 11:30:00 AM Scheduled Provider:HASEEB PEARSON APRN-ALIGNER Location:[facility] Appointment Type:PC OV Appointment Date:11/26/2023 01:15:00 PM Scheduled Provider:BENY ORTIZ MD Location:[facility] Appointment Type:[facility] OV Follow Up Future Scheduled Tests Laboratory* [facility]/Lambda, Free, Serum 10/19/23 * Ferritin 10/19/23 * AFP tumor marker 10/19/23 * Complete Blood Count 10/19/23 * Lipid Profile 01/30/23 * DOMINIQUE (serum) 10/19/23 * Iron Studies 10/19/23 * Albumin/Creatinine Ratio, Random Urine 12/27/22 * Protein Electrophoresis Panel 12/27/22 * Protein Electrophoresis Panel 10/19/23 * Complete Metabolic Panel 01/30/23 * Complete Metabolic Panel 10/19/[address] [facility] Evaluation + Plan note Future Appointments Appointment Date:06/18/2023 10:00:00 AM Scheduled Provider:TERRY LOPEZ MD Location:[facility] PM Appointment Type:PM OV Appointment Date:11/26/2023 01:15:00 PM Scheduled Provider:BENY ORTIZ MD Location:[facility] Appointment Type:[facility]M ONC OV Follow Up Appointment Date:12/05/2023 10:00:00 AM Scheduled Provider:HASEEB PEARSON APRN-ALIGNER Location:[facility] Appointment Type:PC OV Future Scheduled Tests Laboratory* [facility], Free, Serum 10/19/23 * Ferritin 10/19/23 * Thyroid Stimulating Hormone 08/21/23 * Free T4 08/21/23 * AFP tumor marker 10/19/23 * Complete Blood Count 08/21/23 * Complete Blood Count 10/19/23 * Lipid Profile 01/30/23 * DOMINIQUE (serum) 10/19/23 * Iron Studies 10/19/23 * Albumin/Creatinine Ratio, Random Urine 12/27/22 * Protein Electrophoresis Panel 12/27/22 * Protein Electrophoresis Panel 10/19/23 * Complete Metabolic Panel 01/30/23 * Complete Metabolic Panel 08/21/23 * Complete Metabolic Panel 10/19/[address] [facility] Evaluation + Plan note Future Appointments Appointment Date:06/21/2023 10:30:00 AM Scheduled Provider: Location:[facility] Appointment Type:CT Chest w/o Contrast Appointment Date:07/30/2023 09:00:00 AM Scheduled Provider:TERRY LOPEZ MD Location:[facility] PM Appointment Type:PM OV Appointment Date:11/26/2023 01:15:00 PM Scheduled Provider:BENY ORTIZ MD Location:[facility] Appointment Type:[facility]M [facility]C OV Follow Up Appointment Date:12/05/2023 10:00:00 AM Scheduled Provider:HASEEB PEARSON Location:[facility] Appointment Type:PC OV Future Scheduled Tests Laboratory* [facility], Free, Serum 10/19/23 * Ferritin 10/19/23 * Thyroid Stimulating Hormone 08/21/23 * Free T4 08/21/23 * AFP tumor marker 10/19/23 * Complete Blood Count 08/21/23 * Complete Blood Count 10/19/23 * Lipid Profile 01/30/23 * DOMINIQUE (serum) 10/19/23 * Iron Studies 10/19/23 * Albumin/Creatinine Ratio, Random Urine 12/27/22 * Protein Electrophoresis Panel 12/27/22 * Protein Electrophoresis Panel 10/19/23 * Complete Metabolic Panel 01/30/23 * Complete Metabolic Panel 08/21/23 * Complete Metabolic Panel 10/19/23 Radiology* CT Thorax w/o Contrast 06/21/[address] [facility] Evaluation + Plan note Future Appointments Appointment Date:07/30/2023 09:00:00 AM Scheduled Provider:TERRY LOPEZ MD Location:[facility] PM Appointment Type:PM OV Appointment Date:11/26/2023 01:15:00 PM Scheduled Provider:BENY ORTIZ MD Location:[facility] Appointment Type:[facility]C OV Follow Up Appointment Date:12/05/2023 10:00:00 AM Scheduled Provider:HASEEB PEARSON APRN-CAROLINE Location:[facility] Appointment Type:PC OV Future Scheduled Tests Laboratory* [facility]/Lambda, Free, Serum 10/19/23 * Ferritin 10/19/23 * Thyroid Stimulating Hormone 08/21/23 * Free T4 08/21/23 * AFP tumor marker 10/19/23 * Complete Blood Count 08/21/23 * Complete Blood Count 10/19/23 * Lipid Profile 01/30/23 * DOMINIQUE (serum) 10/19/23 * Iron Studies 10/19/23 * Albumin/Creatinine Ratio, Random Urine 12/27/22 * Protein Electrophoresis Panel 12/27/22 * Protein Electrophoresis Panel 10/19/23 * Complete Metabolic Panel 01/30/23 * Complete Metabolic Panel 08/21/23 * Complete Metabolic Panel 10/19/[address] [facility] Evaluation + Plan note Future Appointments Appointment Date:07/30/2023 09:00:00 AM Scheduled Provider:TERRY LOPEZ MD Location:[facility] PM Appointment Type:PM OV Appointment Date:08/07/2023 11:00:00 AM Scheduled Provider:SHAY CALDERON DO Location:[facility] Appointment Type:OSM OV Post Op Appointment Date:11/26/2023 01:15:00 PM Scheduled Provider:BENY ORTIZ MD Location:[facility] Appointment Type:[facility] OV Follow Up Appointment Date:12/05/2023 10:00:00 AM Scheduled Provider:HASEEB PEARSON APRN-CAROLINE Location:[facility] Appointment Type:PC OV Future Scheduled Tests Laboratory* [facility]/Lambda, Free, Serum 10/19/23 * Ferritin 10/19/23 * Thyroid Stimulating Hormone 08/21/23 * Free T4 08/21/23 * AFP tumor marker 10/19/23 * Complete Blood Count 08/21/23 * Complete Blood Count 10/19/23 * Lipid Profile 01/30/23 * DOMINIQUE (serum) 10/19/23 * Iron Studies 10/19/23 * Albumin/Creatinine Ratio, Random Urine 12/27/22 * Protein Electrophoresis Panel 12/27/22 * Protein Electrophoresis Panel 10/19/23 * Complete Metabolic Panel 01/30/23 * Complete Metabolic Panel 08/21/23 * Complete Metabolic Panel 10/19/23 [facility] Evaluation + Plan note Future Appointments Appointment Date:08/07/2023 11:00:00 AM Scheduled Provider:SHAY CALDERON DO Location:[facility] Appointment Type:OSM OV Post Op Appointment Date:09/03/2023 10:00:00 AM Scheduled Provider:TERRY LOPEZ MD Location:[facility] PM Appointment Type:PM OV Appointment Date:11/26/2023 01:15:00 PM Scheduled Provider:BENY ORTIZ MD Location:[facility] Appointment Type:[facility] OV Follow Up Appointment Date:12/05/2023 10:00:00 AM Scheduled Provider:HASEEB PEARSON APRN-ALIGNER Location:[facility] Appointment Type:PC OV Future Scheduled Tests Laboratory* [facility]/Lambda, Free, Serum 10/19/23 * Ferritin 10/19/23 * Thyroid Stimulating Hormone 08/21/23 * Free T4 08/21/23 * AFP tumor marker 10/19/23 * Complete Blood Count 08/21/23 * Complete Blood Count 10/19/23 * Lipid Profile 01/30/23 * DOMINIQUE (serum) 10/19/23 * Iron Studies 10/19/23 * Albumin/Creatinine Ratio, Random Urine 12/27/22 * Protein Electrophoresis Panel 12/27/22 * Protein Electrophoresis Panel 10/19/23 * Complete Metabolic Panel 01/30/23 * Complete Metabolic Panel 08/21/23 * Complete Metabolic Panel 10/19/[address] [facility] Hospital course Narrative No data available for this section [facility] Hospital Discharge instructions No data available for this section [facility] Note* ROSENDO JEFFERY DO: SIGN, VERIFY Event Display: EKG [ED [facility]] - CV Authored Date: [id number] [facility] Progress note No data available for this section [facility] Summary Purpose Family History No Family History Records FoundNo Family History Records Found No data available for this section No data available for this section No data available for this section No data available for this section No data available for this section No data available for this section No data available for this section No Family History Records Found Advance Directives No Advanced Directives Records FoundNo Advanced Directives Records FoundNo Advanced Directives Records Found Additional Source Comments INFORMATION SOURCE (unrecogn ized section and content) DATE CREATED AUTHOR AUTHOR'S ORGANIZ ATION 12/06/2022 [facility] DATE CREATED AUTHOR AUTHOR'S ORGANIZ ATION 08/09/2023 [facility] ([place]) Care Team (unrecognized sect ion and content) Personnel Name: HASEEB PEARSON APRN-CAROLINE Address: [address] Name: Shi Huggins Clerk Jade PT Personnel Name: HASEEB PEARSON APRN-ALIGNER Address: [address] Name: Shi Hugginsrvincent Hansen PT Care Team Personnel Name: Shi Huggins Clerk Jade PT Position: P3 Scheduling - Trial Attorney Advanced Member Role: Other Name: HASEEB PEARSON APRN-ALIGNER Position: P4 Advanced Wind Tunnel Mechanic Member Role: Primary Care Physician Address: Address: [address] [place] [address] Care Team Related Persons Name: CROW MARES Address: Home [address] [place] [id number] [place] Name: KENNY ROACH Address: Home [address] [place], [place] [id number] [place] Care Team Personnel Name: Shi Huggins Clerk Jade PT Position: P3 Scheduling - Trial Attorney Advanced Member Role: Other Name: HASEEB PEARSON APRN-ALIGNER Position: P4 Advanced Wind Tunnel Mechanic Member Role: Primary Care Physician Address: Address: [address] [place] [address]- Care Team Related Persons Name: CROW MARES Address: Home [address] [place] [id number] [place] Name: KENNY ROACH Address: Home [address] [place], [place] [id number] [place] Care Team Personnel Name: Shi Huggins Clerk Jade PT Position: P3 Scheduling - Trial Attorney Advanced Member Role: Other Name: HASEEB PEARSON TENTER-ALIGNER Position: P4 Advanced Wind Tunnel Mechanic Member Role: Primary Care Physician Address: Address: [address] [place] [address]- Care Team Related Persons Name: CROW MARES Address: Home [address] [place] [id number] [place] Name: KENNY ROACH Address: Home [address] [place], [place] [id number] [place] Care Team Personnel Name: Shi Huggins Clerk Jade PT Position: P3 Scheduling - Trial Attorney Advanced Member Role: Other Name: HASEEB PEARSON TENTER-ALIGNER Position: P4 Advanced Wind Tunnel Mechanic Member Role: Primary Care Physician Address: Address: [address] [place] [address]- Care Team Related Persons Name: CROW MARES Address: Home [address] [place] [id number] [place] Name: KENNY ROACH Address: Home [address] [place], [place] [id number] [place] Care Team Personnel Name: Shi Hugginsrk Jade PT Position: P3 Scheduling - Trial Attorney Advanced Member Role: Other Name: HASEEB PEARSON TENTER-ALIGNER Position: P4 Advanced Wind Tunnel Mechanic Member Role: Primary Care Physician Address: Address: [address] [place] [address]- Care Team Related Persons Name: CROW MARES Address: Home [address] [place], [place] [id number] [place] Name: KENNY ROACH Address: Home [address] [place], [place] [phone] [place] Care Team Personnel Name: Joseluis It Corporate Recruiter Jade PT Position: P3 Scheduling - Trial Attorney Advanced Member Role: Other Name: HASEEB PEARSON TENTER-ALIGNER Position: P4 Advanced Wind Tunnel Mechanic Member Role: Primary Care Physician Address: Address: [address] [place] [address]- Care Team Related Persons Name: CROW MARES Address: Home [address] [place] [id number] [place] Name: KENNY ROACH Address: Home [address] [place], [place] [phone] [place] Care Team Personnel Name: Shi Huggins Clerk Jade PT Position: P3 Scheduling - Trial Attorney Advanced Member Role: Other Name: HASEEB PEARSON TENTER-ALIGNER Position: P4 Advanced Wind Tunnel Mechanic Member Role: Primary Care Physician Address: Address: [address] [place] [address]- Care Team Related Persons Name: CROW MARES Address: Home [address] [place] [id number] [place] Address: Temporary [address] [place], [place] [id number] Name: EKNNY ROACH Address: Home [address] [place], [place] [phone] [place] Care Team Personnel Name: Shi Huggins Clerk Jade PT Position: P3 Scheduling - Trial Attorney Advanced Member Role: Other Name: HASEEB PEARSON TENTER-ALIGNER Position: P4 Advanced Wind Tunnel Mechanic Member Role: Primary Care Physician Address: Address: [address] [place], [place] [address] Care Team Related Persons Name: CROW MARES Address: Home [address] [place], [place] [id number] [place] Address: Temporary [address] [place] [id number] Name: KENNY ROACH Address: Home [address] [place], [place] [phone] [place] Care Team Personnel Name: Joseluis It Corporate Recruiter Jade PT Position: P3 Scheduling - Trial Attorney Advanced Member Role: Other Name: HASEEB PEARSON TENTER-ALIGNER Position: P4 Advanced Wind Tunnel Mechanic Member Role: Primary Care Physician Address: Address: [address] [place] [address]- Care Team Related Persons Name: CROW MARES Address: Home [address] [place] [id number] [place] Address: Temporary [address] [place] [id number] Name: KENNY ROACH Address: Home [address] [place], [place] [phone] [place] Care Team Personnel Name: Shi Huggins Clerk Jade PT Position: P3 Scheduling - Trial Attorney Advanced Member Role: Other Name: HASEEB PEARSON TENTER-ALIGNER Position: P4 Advanced Wind Tunnel Mechanic Member Role: Primary Care Physician Address: Address: [address] [place] [address]- Care Team Related Persons Name: CROW MARES Address: Home [address] [place], [place] [id number] [place] Address: Temporary [address] [place], [place] [id number] Name: KENNY ROACH Address: Home [address] [place], [place] [phone] [place] Care Team Personnel Name: Shi Huggins Clerk Jade PT Position: P3 Scheduling - Trial Attorney Advanced Member Role: Other Name: HASEEB PEARSON TENTER-ALIGNER Position: P4 Advanced Wind Tunnel Mechanic Member Role: Primary Care Physician Address: Address: [address] [place] [address]- Care Team Related Persons Name: CROW MARES Address: Home [address] [place], [place] [id number] [place] Address: Temporary [address] [place] [id number] Name: KENNY ROACH Address: Home [address] [place], [place] [phone] [place] Care Team Personnel Name: Shi Huggins Clerk Jade PT Position: P3 Scheduling - Trial Attorney Advanced Member Role: Other Name: HASEEB PEARSON TENTER-ALIGNER Position: P4 Advanced Wind Tunnel Mechanic Member Role: Primary Care Physician Address: Address: [address] [place] [address]- Care Team Related Persons Name: CROW MARES Address: Home [address] [place], [place] [id number] [place] Address: Temporary [address] [place], [place] [id number] Name: KENNY ROACH Address: Home [address] [place], [place] [phone] [place] Care Team Personnel Name: Shi Huggins Clerk Jade PT Position: P3 Scheduling - Trial Attorney Advanced Member Role: Other Name: HASEEB PEARSON TENTER-ALIGNER Position: P4 Advanced Wind Tunnel Mechanic Member Role: Primary Care Physician Address: Address: [address] [place] [address]- Care Team Related Persons Name: CROW MARES Address: Home [address] [place] [id number] [place] Address: Temporary [address] [place] [id number] Name: KENNY ROACH Address: Home [address] [place], [place] [phone] Care Team (unrecognized sect ion and content) Care Team Personnel Name: Shi Huggins Clerk Jade PT Position: P3 Scheduling - Trial Attorney Advanced Member Role: Other Name: HASEEB PEARSON TENTER-ALIGNER Position: P4 Advanced Practice Nurse Med Service: Employed Provider Member Role: Primary Care Physician Address: Address: [address] [place] [address]- Care Team Related Persons Name: KENNY ROACH Address: Home [address] [place], [place] [phone] [place] Care Team Personnel Name: Shi Huggins Clerk Jade PT Position: P3 Scheduling - Trial Attorney Advanced Member Role: Other Name: HASEEB PEARSON TENTER-ALIGNER Position: P4 Advanced Practice Nurse Med Service: Employed Provider Member Role: Primary Care Physician Address: Address: [address] [place] [address]- Care Team Related Persons Name: KENNY ROACH Address: Home [address] [place], [place] [phone] [place] Care Team Personnel Name: Shi Huggins Clerk Jade PT Position: P3 Scheduling - Trial Attorney Advanced Member Role: Other Name: HASEEB PEARSON TENTER-ALIGNER Position: P4 Advanced Practice Nurse Med Service: Employed Provider Member Role: Primary Care Physician Address: Address: [address] [place] [address]- Care Team Related Persons Name: KENNY ROACH Address: Home [address] [place] [phone] [place] Care Team Personnel Name: Shi Huggins Clerk Jade PT Position: P3 Scheduling - Trial Attorney Advanced Member Role: Other Name: HASEEB PEARSON TENTER-ALIGNER Position: P4 Advanced Practice Nurse Med Service: Employed Provider Member Role: Primary Care Physician Address: Address: [address] [place] [address]- Care Team Related Persons Name: KENNY ROACH Address: Home [address] [place] [address] [place] Care Team Personnel Name: Shi Huggins Clerk Jade PT Position: P3 Scheduling - Trial Attorney Advanced Member Role: Other Name: HASEEB PEARSON TENTER-ALIGNER Position: P4 Advanced Practice Nurse Med Service: Employed Provider Member Role: Primary Care Physician Address: Address: [address] [place] [address]- Care Team Related Persons Name: KENNY ROACH Address: Home [address] [place] [phone] [place] Care Team Personnel Name: Shi Huggins Clerk Jade PT Position: P3 Scheduling - Trial Attorney Advanced Member Role: Other Name: HASEEB PEARSON TENTER-ALIGNER Position: P4 Advanced Practice Nurse Med Service: Employed Provider Member Role: Primary Care Physician Address: Address: [address] [place] [address]- Care Team Related Persons Name: KENNY ROACH Address: Home [address] [place] [address] [place] Care Team Personnel Name: Shi Huggins Clerk Jade PT Position: P3 Scheduling - Trial Attorney Advanced Member Role: Other Name: HASEEB PEARSON TENTER-ALIGNER Position: P4 Advanced Practice Nurse Member Role: Primary Care Physician Address: Address: [facility] [place] [address]- Care Team Related Persons Name: KENNY ROACH Address: Home [address] [place], [place] [phone] [place] Care Team Personnel Name: Shi Huggins Clerk Jade PT Position: P3 Scheduling - Trial Attorney Advanced Member Role: Other Name: HASEEB PEARSON TENTER-ALIGNER Position: P4 Advanced Practice Nurse Med Service: Employed Provider Member Role: Primary Care Physician Address: Address: [address] [place] [address]- Care Team Related Persons Name: CROW MARES Address: Home [address] [place] [address] [place] Name: KENNY ROACH Address: Home [address] [place], [place] [phone] [place] Care Team Personnel Name: Shi Huggins Clerk Jade PT Position: P3 Scheduling - Trial Attorney Advanced Member Role: Other Name: HASEEB PEARSON TENTER-ALIGNER Position: P4 Advanced Practice Nurse Member Role: Primary Care Physician Address: Address: [address] [place] [address]- Care Team Related Persons Name: CROW MARES Address: Home [address] [place] [address] [place] Name: KENNY ROACH Address: Home [address] [place], [place] [phone] [place] Care Team Personnel Name: Shi Huggins Clerk Jade PT Position: P3 Scheduling - Trial Attorney Advanced Member Role: Other Name: HASEEB PEARSON TENTER-ALIGNER Position: P4 Advanced Practice Nurse Member Role: Primary Care Physician Address: Address: [address] [place] [address]- Care Team Related Persons Name: CROW MARES Address: Home [address] [place] [id number] [place] Name: KENNY ROACH Address: Home [address] [place] [phone] [place] Care Team Personnel Name: Shi Huggins Clerk Jade PT Position: P3 Scheduling - Trial Attorney Advanced Member Role: Other Name: HASEEB PEARSON TENTER-ALIGNER Position: P4 Advanced Practice Nurse Member Role: Primary Care Physician Address: Address: [address] [facility] [place] [address]- Care Team Related Persons Name: CROW MARES Address: Home [address] [place], [place] [id number] Name: KENNY ROACH Address: Home [address] [place], [place] [phone] FOR RECORDS PERTAINING TO PATIENTS WHO ARE OR HAVE BEEN ENROLLED IN A CHEMICAL DEPENDENCY/SUBSTANCEABUSE PROGRAM, SOME INFORMATION MAY BE OMITTED. This clinical summary was aggregated from multiple sources. Caution should be exercised in using it in the provision of clinical care. This summary normalizes information from multiple sources, and as a consequence, information in this document may materially change the coding, format and clinical context of patient data. In addition, data may be omitted in some cases. CLINICAL DECISIONS SHOULD BE BASED ON THE PRIMARY CLINICAL RECORDS. [employer] provides no warranty or guarantee of the accuracy or completeness of information in this document.
[2023-08-21 10:24] LABS: Absolute Lymphocyte Count 0.54 X10^3/uL (0.83-4.51); Absolute Neutrophil Count 1.3 X10^3/uL (2.0-7.7); Basophil# 0.01 X10^3/uL; Basophil% 0.5 % (0-1); Eosinophil# 0.05 X10^3/uL; Eosinophils% 2.4 % (0-5); Hematocrit 32.9 % (37-47); Hemoglobin 10.4 g/dL (12.0-15.0); Lymphocyte # 0.54 X10^3/ul (0.83-4.51); Mean Corp Hgb Conc 31.6 g/dL (32-36); Mean Corpuscular Hgb 29.1 pg (27.0-32.0); Mean Corpuscular Volume 91.9 fL (81-99); Mean Platelet Vol. 10.5 fl (6.2-12.0); Monocyte% 9.6 % (0-10); NRBC Flagged by Analyzer 0 % (0-5); Neutrophil # 1.27 X10^3/uL (2.7-7.7); POSITIVE DIFFERENTIAL YES; Platelet Count 134 K/mm3 (150-450); RBC Distribution Width CV 13.7 % (11.6-14.6); Red Blood Count 3.58 M/mm3 (4.2-5.4); White Blood Count 2.1 K/mm3 (4.4-11.0)
[2023-08-21 10:29] LABS: Differential Indicated SCAN CRITERIA MET
[2023-08-21 10:30] LABS: Erythrocyte Sedimentation Rate 11 mm/hr (0-30)
[2023-08-21 10:51] LABS: ALB/GLOB Ratio 0.8 RATIO (0.9-2.4); AST(SGOT) 23 U/L (15-37); Alanine Aminotransfer ALT/SGPT 20 U/L (13-56); Albumin, Serum 3.3 g/dL (3.2-5.0); Alkaline Phosphatase 235 U/L (45-117); Anion Gap 3 (5-15); BUN 20 mg/dL (7-18); BUN/Creat Ratio 22.5 RATIO (10-20); Calcium,Total 9.1 mg/dL (8.5-10.1); Chloride 111 mmol/L (98-107); Creatinine, Serum 0.89 mg/dL (0.55-1.02); EST Glomerular Filtration Rate 66 mL/min (>60); Est Glom Filt Rate - Afr Amer 80 mL/min (>60); Ferritin 230 ng/mL (8-252); Glucose 92 mg/dL (74-106); Iron 71 ug/dL (50-170); Iron Binding Capacity,Total 251 ug/dL (250-450); LDH 147 U/L (84-246); PERCENT IRON SATURATION 28.3 % (15.0-55.0); Potassium 3.9 mmol/L (3.5-5.1); Protein, Total 7.3 g/dL (6.4-8.2); Sodium Level 139 mmol/L (136-145); Thyroid Stim Hormone (TSH) 0.27 uIU/mL (0.358-3.74)
[2023-08-22 15:11] LABS: Albumin 3.5 g/dL (2.9-4.4); Alpha-1-Globulins 0.2 g/dL (0.0-0.4); Alpha-2-Globulins 0.7 g/dL (0.4-1.0); Free Kappa Light Chains 51.6 mg/L (3.3-19.4); Free Lambda Light Chains 37.1 mg/L (5.7-26.3); Gamma Globulin 1.6 g/dL (0.4-1.8); Immunoglobulin A 277 mg/dL (64-422); Immunoglobulin G 1581 mg/dL (586-1602); Immunoglobulin M 50 mg/dL (26-217)
[2023-08-23 10:22] LABS: Pathologist Review Reviewed
== END | disposition home or self-care (01) ==
LOC: MTLAB 09:21
PROVIDERS: PCP Nurse Practitioner Primary Care; Referring Provider Internal Medicine Medical Oncology; Visit Provider Internal Medicine Medical Oncology
DX: N18.32 Chronic kidney disease, stage 3b (principal); E03.9 Hypothyroidism, unspecified; D64.9 Anemia, unspecified; Z86.03 Personal history of neoplasm of uncertain behavior
CPT/HCPCS: 36415; 80053; 82728; 82784; 83540; 83550; 83615; 83883; 84165; 84439; 84443; 85025; 85652; 86334

== ENCOUNTER 2025-01-02 08:50 | Outpatient (CLI) | payer MEDICARE, SELFPAY ==
[2025-01-02] VITALS (15 sets, daily range): BP systolic 147–186; BP diastolic 55–116; PULSE 51–64; RESP 12–16; TEMP 36.4; O2SAT 93–99; BMI 22.8
--- NOTE | 2025-01-02 09:11 | US_ITS ---
PROCEDURE: LIVER BIOPSY ULTRASOUND 01/02/2025 REASON FOR EXAM: CIRRHOSIS. PROCEDURE: Previous imaging was reviewed. Informed consent was obtained. Standard time-out protocol was used. Conscious sedation was used during the procedure, with a total of 1 mg Versed intravenous and 50 mcg fentanyl intravenous administered. Start time 1028 hours and stop time 1049 hours. The right upper quadrant was prepped and draped in the usual sterile fashion. Using ultrasound guidance and 1% lidocaine for local anesthesia, 3 biopsy specimens were obtained from the right hepatic lobe using a 15 cm 18G [employer] core biopsy system. Samples were placed into formalin and sent for evaluation. There were no immediate complications. US/Liver Biopsy Ultrasound IMPRESSION: Successful ULTRASOUND GUIDED RANDOM LIVER BIOPSY. Pathology results pending. Reading Location: [place] [id number]
[2025-01-02 09:17] LABS: Absolute Lymphocyte Count 0.72 X10^3/uL (0.83-4.51); Absolute Neutrophil Count 1.5 X10^3/uL (2.0-7.7); Basophil# 0.02 X10^3/uL; Basophil% 0.8 % (0-1); Eosinophil# 0.09 X10^3/uL; Eosinophils% 3.5 % (0-5); Hematocrit 33.4 % (37-47); Hemoglobin 11.2 g/dL (12.0-15.0); Lymphocyte # 0.72 X10^3/ul (0.83-4.51); Lymphocyte % 27.7 % (19-41); Mean Corp Hgb Conc 33.5 g/dL (32-36); Mean Corpuscular Hgb 29.9 pg (27.0-32.0); Mean Corpuscular Volume 89.3 fL (81-99); Mean Platelet Vol. 9.8 fl (6.2-12.0); Monocyte# 0.31 X10^3/uL; Monocyte% 11.9 % (0-10); NRBC Flagged by Analyzer 0 % (0-5); Neutrophil # 1.45 X10^3/uL (2.7-7.7); Neutrophil % 55.7 % (47-70); Platelet Count 155 K/mm3 (150-450); RBC Distribution Width CV 13.6 % (11.6-14.6); RBC Distribution Width SD 44.7 fl (35.1-43.9); Red Blood Count 3.74 M/mm3 (4.2-5.4); White Blood Count 2.6 K/mm3 (4.4-11.0)
[2025-01-02 09:24] LABS: International Normalized Ratio 1.2; Prothrombin Time (Protime)PT. 15.3 SECONDS (11.7-14.9)
[2025-01-02 09:25] LABS: Partial Thromboplast Time 30.1 Seconds (24.1-36.2)
[2025-01-02] MEDS: Midazolam 2 MG/2 ML Syringe IV (10:28)
[2025-01-02] MEDS: fentaNYL 100 MCG/2 ML Ampul IV (10:30)
[2025-01-02] MEDS: Lidocaine 2% (20 ml mdv) 20 ML Vial INFILT (10:35)
[2025-01-02 12:11] LABS: Pathology Sent to OSU SEE PATHOLOGY REPORT
== END 2025-01-02 23:59 | disposition home or self-care (01) ==
PROVIDERS: Radiology Nuclear Radiology; PCP Nurse Practitioner Primary Care; Referring Provider Internal Medicine Gastroenterology; Visit Provider Internal Medicine Gastroenterology
DX: Z01.818 Encounter for other preprocedural examination (principal); K74.60 Unspecified cirrhosis of liver
CPT/HCPCS: 47000; 36415; 76942; 85025; 85610; 85730; 99156; A4216